=== PATIENT | female | born 1960 | race Caucasian/White ===

== ENCOUNTER 2017-01-27 15:20 | Inpatient (IN) ==
[2017-01-27] MEDS ORDERED: HYDROmorphone 2 MG/ML SYRINGE IV PRN (15:34)
[2017-01-27] MEDS ORDERED: ZOLPIDEM 5 MG TABLET PO PRN (15:34)
--- NOTE | 2017-01-27 16:25 | General Surg History&Physical ---
History of Present Illness Patient information: Note initiated : 01/27/17 at 3:54 pm Service Date, if different from initiated Date: [] Patient: Shanika Robles a 56 y/o F admitted on 01/27/17 for diverticulitis. Chief Complaint: [] HPI: Ms. Robles is a 56 year old F Medications and Allergies Home Medications Medication Instructions Recorded Confirmed Type ALPRAZolam [Xanax Xr] 1 mg PO PRN PRN 09/26/15 01/27/17 History Albuterol Sulfate [Ventolin] 1 puff INH Q4HP PRN 09/26/15 01/27/17 History Fenofibrate [Fenoglide] 120 mg PO DAILY 09/26/15 01/27/17 History Fexofenadine [Elham] 180 mg PO ONCE 09/26/15 01/27/17 History Furosemide [Lasix] 20 mg PO DAILY 09/26/15 01/27/17 History Levothyroxine [Synthroid] 25 mcg PO DAILY 09/26/15 01/27/17 History Lisinopril [Zestril] 20 mg PO DAILY 09/26/15 01/27/17 History Naproxen 500 mg PO DAILY 09/26/15 01/27/17 History Omeprazole [PriLOSEC] 40 mg PO ACB 09/26/15 01/27/17 History Sertraline [Zoloft] 100 mg PO DAILY 09/26/15 01/27/17 History traZODone HCL [Desyrel] 100 mg PO HS 09/26/15 01/27/17 History baclofen 10 mg tablet 10 mg PO BID PRN tab 12/29/16 01/27/17 History blood sugar diagnostic strips See Dose Instructions .ROUTE 12/29/16 01/27/17 History .MEDSUPPLY cholecalciferol (vitamin D3) 5,000 5,000 unit PO QDAY cap 12/29/16 01/27/17 History unit capsule epinephrine 0.3 mg/0.3 mL 0.3 mg IM ONCE PRN each 12/29/16 01/27/17 History injection, auto-injector freestyle lite lancet MISCELLANE QDAY 12/29/16 01/27/17 History latanoprost 0.005 % eye drops 1 drp OPHTHALMIC QHS ml 12/29/16 01/27/17 History lisinopril 10 0.5 tab PO QDAY tab 12/29/16 01/27/17 History mg-hydrochlorothiazide 12.5 mg tablet ondansetron 4 mg disintegrating 4 mg TRANSLINGU .Q4-6H PRN tab 12/29/16 History tablet potassium chloride ER 10 mEq 10 meq PO BID tab 12/29/16 01/27/17 History tablet,extended release tramadol 50 mg tablet See Label Instructions PO TID PRN 12/29/16 01/27/17 History tab amoxicillin 875 mg-potassium 1 tab PO BID #30 tab 01/18/17 01/27/17 Rx clavulanate 125 mg tablet clindamycin 300 mg capsule 300 mg PO QID #60 cap 01/18/17 01/27/17 Rx Allergies Allergy/AdvReac Type Severity Reaction Status Date / Time Buspirone [From BUSPAR] AdvReac Unknown Rash Verified 01/27/17 15:02
[2017-01-27 16:47] LABS: Mean Corpuscular HGB Conc 32.9 g/dL (31.0-36.0); Mean Corpuscular Hemoglobin 28.3 pg (26.0-34.0); Platelet Count 311 K/mcL (140-440); Red Cell Distribution Width 15.7 % (11.5-14.5)
[2017-01-27] MEDS: metroNIDAZOLE 500 MG/100 ML BAG IV SCH (16:50)
[2017-01-27 17:03] LABS: Eosinophils % (Manual) 3 % (0-7); Lymphocytes % 15 % (15-49); Monocytes % (Manual) 7 % (1-12); Platelet Estimate NORMAL (NORMAL); RBC Morphology NORMAL (NORMAL); Segmented Neutrophils % 75 % (38-78)
[2017-01-27 17:29] LABS: ALT/SGPT 15 U/l (0-40); Albumin/Globulin Ratio 0.9 (1.0-2.3); Alkaline Phosphatase 57 U/L (39-117); Bilirubin,Direct < 0.2 mg/dL (0.0-0.3); Blood Urea Nitrogen 7 mg/dl (6-20); Gamma Glutamyl Transpeptidase 34 U/L (5-36); Magnesium 1.8 mg/dL (1.6-2.5); Uric Acid 4.2 mg/dL (2.5-8.0)
[2017-01-27 17:35] LABS: Erythrocyte Sedimentation Rate 99 mm/hr (0-20)
[2017-01-27] MEDS ORDERED: PIPERACILLIN SODIUM/TAZOBACTAM 3.375 GM VIAL IV ONE (18:03)
[2017-01-27] MEDS: PIPERACILLIN SODIUM/TAZOBACTAM 3.375 GM in DEXTROSE 5% IN WATER 50 ML IV SCH (18:14)
[2017-01-27] MEDS ORDERED: ALBUTEROL SULFATE 1 PUFF INHALER INH PRN (18:26)
[2017-01-27] MEDS ORDERED: FEXOFENADINE 180 MG TABLET PO PRN (18:26)
[2017-01-27] MEDS ORDERED: SODIUM PHOSPHATE 45 MMOL/15 ML VIAL IV ONE (18:30)
[2017-01-27] MEDS: 0.9 % SODIUM CHLORIDE 1,000 ML IV SCH (19:19)
[2017-01-27] MEDS ORDERED: SODIUM PHOSPHATE 45 MMOL in DEXTROSE 5% IN WATER 500 ML IV ONE (21:00)
[2017-01-27 21:04] LABS: Appearance,Urine CLOUDY; Bacteria,Urine FEW /hpf (0); Bilirubin,Urine NEG (NEG); Calcium Oxalate Crystals,Urine MANY /hpf (0); Color,Urine AMBER; Glucose,Urine (UA) NEGATIVE (NEG); Leukocyte Esterase,Urine 75 /uL (NEG); Mucus,Urine MANY /hpf (0); Nitrate,Urine NEG (NEG); Protein,Urine 100 mg/dL (NEG); Specific Gravity,Urine 1.025 (1.000-1.035); Urine Blood NEG mg/dL (<0.03); Urine Budding Yeast FEW /hpf (0); Urine Hyaline Cast 30 /lpf (0-2); Urine RBC 23 /hpf (0-1); Urine Squamous Epithelial Cell 39 /hpf (0-4); Urine WBC 18 /hpf (0-4); Urobilinogen,Urine NEG (NEG)
[2017-01-27] MEDS: DOCUSATE SODIUM 100 MG CAPSULE PO SCH (21:41)
[2017-01-27] MEDS: LATANOPROST OPHTH DROPS 2.5ML BOTTLE OU SCH (21:42)
[2017-01-27] MEDS: traZODone HCL 150 MG TABLET PO SCH (21:42)
[2017-01-27] MEDS: 0.9 % SODIUM CHLORIDE 10 ML SYRINGE IV SCH (22:25)
[2017-01-28] MEDS: metroNIDAZOLE 500 MG/100 ML BAG IV SCH ×5 (01:46→23:00)
[2017-01-28] MEDS: HYDROmorphone 2 MG TABLET PO PRN ×4 (01:51→17:05)
[2017-01-28] MEDS: PIPERACILLIN SODIUM/TAZOBACTAM 3.375 GM in DEXTROSE 5% IN WATER 50 ML IV SCH ×4 (02:55→18:30)
[2017-01-28 05:31] LABS: Mean Cell Volume 86.3 fL (80.0-100.0); Mean Corpuscular HGB Conc 33.2 g/dL (31.0-36.0); Mean Corpuscular Hemoglobin 28.6 pg (26.0-34.0); Platelet Count 240 K/mcL (140-440); RBC 3.75 M/mcL (4.00-5.20); Red Cell Distribution Width 15.7 % (11.5-14.5)
[2017-01-28 05:58] LABS: ALT/SGPT 11 U/l (0-40); Albumin 3.5 gm/dL (3.2-5.2); Albumin/Globulin Ratio 0.9 (1.0-2.3); Alkaline Phosphatase 50 U/L (39-117); Bilirubin,Direct < 0.2 mg/dL (0.0-0.3); Blood Urea Nitrogen 5 mg/dl (6-20); Gamma Glutamyl Transpeptidase 30 U/L (5-36); Uric Acid 3.5 mg/dL (2.5-8.0)
[2017-01-28 06:34] LABS: Band Neutrophils % 1 % (0-10); Eosinophils % (Manual) 2 % (0-7); Lymphocytes % 27 % (15-49); Monocytes % (Manual) 6 % (1-12); Platelet Estimate NORMAL (NORMAL); RBC Morphology NORMAL (NORMAL); Segmented Neutrophils % 64 % (38-78)
[2017-01-28] MEDS: 0.9 % SODIUM CHLORIDE 10 ML SYRINGE IV SCH ×3 (07:04→23:58)
[2017-01-28] MEDS: PANTOPRAZOLE 40 MG TABLET PO SCH (07:16)
[2017-01-28] MEDS: LEVOTHYROXINE 25 MCG TABLET PO SCH (07:16)
[2017-01-28] MEDS ORDERED: LISINOPRIL/HCTZ 20/12.5MG TABLET PO SCH (09:00)
[2017-01-28] MEDS ORDERED: ALPRAZolam 0.5 MG TABLET PO PRN (10:38)
[2017-01-28] MEDS: HYDROCHLOROTHIAZIDE 25 MG TABLET PO SCH (10:48)
[2017-01-28] MEDS: SERTRALINE 50 MG TABLET PO SCH (10:49)
[2017-01-28] MEDS: ENOXAPARIN 40 MG/0.4 ML SYRINGE SQ SCH ×2 (10:50→10:55)
[2017-01-28] MEDS: LISINOPRIL 10 MG TABLET PO SCH (10:50)
[2017-01-28] MEDS: DOCUSATE SODIUM 100 MG CAPSULE PO SCH ×2 (10:50→20:46)
[2017-01-28] MEDS: FUROSEMIDE 20 MG TABLET PO SCH (10:50)
--- NOTE | 2017-01-28 11:51 | General Surgery Progress Note ---
Subjective Patient reports: feels better, still having pain, tolerating liquids well, flatus, nausea, afebrile Narrative: Note initiated : 01/28/17 at 11:49 am Service Date, if different from initiated Date: [] Patient: Shanika Rolbes 56 y/o F admitted on 01/27/17 for Diverticulitis. Chief Complaint: [Patient still has left lower quadrant pain. She has nausea but no vomiting. She has not had diarrhea since admission. She is afebrile. She has some mild postprandial discomfort.] Objective Temp Pulse Resp BP Pulse Ox 96.9 F L 53 L 20 126/71 94 01/28/17 08:00 01/28/17 04:00 01/28/17 08:00 01/28/17 08:00 01/28/17 08:00 - Additional Data Intake & Output - Last 24 hours: Intake & Output 01/26/17 01/27/17 01/28/17 01/29/17 05:59 05:59 05:59 05:59 Intake Total 1115 / 1115 100 / 100 Output Total 100 / 100 500 / 500 Balance 1015 / 1015 -400 / -400 Weight 230 lb - General physical appearance moderate distress, moderate pain - Eyes PERRL - ENT no congestion - Neck no masses - Respiratory clear to auscultation - Cardiovascular Cardiovascular exam: Present: normal rate and rhythm, RRR, +S1, +S2. Absent: JVD - Abdomen tender (Abdomen is mildly distended and obese she has tenderness in the left lower quadrant. There is no fullness or mass.) - Integumentary other (Extensive scarring of her extremities and abdominal wall is unchanged) - Neurologic normal coordination, normal sensation - Musculoskeletal normal gait, normal posture - Psychiatric oriented to time (Is), oriented to person, oriented to place, speech is normal, memory intact - Labs 01/28/17 04:30 01/28/17 04:30 Diabetes panel 01/27/17 01/28/17 Range/Units 16:24 04:30 Sodium 137 137 (133-145) mmol/L Potassium 3.4 3.0 L (3.3-5.1) mmol/L Chloride 96 98 (96-108) mmol/L Carbon Dioxide 22 25 (22-30) mmol/L BUN 7 5 L (6-20) mg/dl Creatinine 0.8 0.7 (0.6-1.1) mg/dl Glucose 95 103 (70-105) mg/dL Calcium 10.7 H 9.8 (8.6-10.4) mg/dl AST 18 16 (0-37) U/l ALT 15 11 (0-40) U/l Alkaline Phosphatase 57 50 (39-117) U/L Total Protein 8.6 H 7.3 (5.9-8.4) gm/dL Albumin 4.0 3.5 (3.2-5.2) gm/dL Triglycerides 182 H 142 (<150) mg/dl Calcium panel 01/27/17 01/28/17 Range/Units 16:24 04:30 Calcium 10.7 H 9.8 (8.6-10.4) mg/dl Phosphorus 2.0 L 4.6 H (2.7-4.5) mg/dL Albumin 4.0 3.5 (3.2-5.2) gm/dL Pituitary panel 01/27/17 01/28/17 Range/Units 16:24 04:30 Sodium 137 137 (133-145) mmol/L Potassium 3.4 3.0 L (3.3-5.1) mmol/L Chloride 96 98 (96-108) mmol/L Carbon Dioxide 22 25 (22-30) mmol/L BUN 7 5 L (6-20) mg/dl Creatinine 0.8 0.7 (0.6-1.1) mg/dl Glucose 95 103 (70-105) mg/dL Calcium 10.7 H 9.8 (8.6-10.4) mg/dl Adrenal panel 01/27/17 01/28/17 Range/Units 16:24 04:30 Sodium 137 137 (133-145) mmol/L Potassium 3.4 3.0 L (3.3-5.1) mmol/L Chloride 96 98 (96-108) mmol/L Carbon Dioxide 22 25 (22-30) mmol/L BUN 7 5 L (6-20) mg/dl Creatinine 0.8 0.7 (0.6-1.1) mg/dl Glucose 95 103 (70-105) mg/dL Calcium 10.7 H 9.8 (8.6-10.4) mg/dl Total Bilirubin 0.6 0.5 (0.0-1.0) mg/dL AST 18 16 (0-37) U/l ALT 15 11 (0-40) U/l Alkaline Phosphatase 57 50 (39-117) U/L Total Protein 8.6 H 7.3 (5.9-8.4) gm/dL Albumin 4.0 3.5 (3.2-5.2) gm/dL Assessment and Plan (1) Diverticulitis of intestine with abscess without bleeding Status: Acute Assessment and plan: Continue present therapy with plans for CT of abdomen and pelvis on Tuesday to determine the degree of improvement and to formulate a plan for continued treatment. Current Visit: Yes (2) Anxiety associated with depression Status: Acute Current Visit: Yes (3) Hypertension, essential Status: Chronic Current Visit: No - Time Spent With Patient Total time spent is greater than 50% in coordination of care (as documented) at patient's floor/unit and/or counseling patient:
[2017-01-28] MEDS: BACLOFEN 10 MG TABLET PO PRN (20:43)
[2017-01-28] MEDS: POTASSIUM CHLORIDE 20 MEQ TABLET PO SCH (20:43)
[2017-01-28] MEDS: traZODone HCL 150 MG TABLET PO SCH (20:44)
[2017-01-28] MEDS: LATANOPROST OPHTH DROPS 2.5ML BOTTLE OU SCH (23:57)
[2017-01-29] MEDS: PIPERACILLIN SODIUM/TAZOBACTAM 3.375 GM in DEXTROSE 5% IN WATER 50 ML IV SCH ×4 (00:50→18:06)
[2017-01-29] MEDS: 0.9 % SODIUM CHLORIDE 10 ML SYRINGE IV SCH ×3 (05:18→21:02)
[2017-01-29] MEDS: metroNIDAZOLE 500 MG/100 ML BAG IV SCH ×4 (05:18→22:44)
[2017-01-29 06:21] LABS: Mean Cell Volume 86.5 fL (80.0-100.0); Mean Corpuscular HGB Conc 33.2 g/dL (31.0-36.0); Mean Corpuscular Hemoglobin 28.7 pg (26.0-34.0); Platelet Count 233 K/mcL (140-440); Red Cell Distribution Width 15.2 % (11.5-14.5)
[2017-01-29 06:55] LABS: ALT/SGPT 10 U/l (0-40); Albumin 3.5 gm/dL (3.2-5.2); Albumin/Globulin Ratio 0.9 (1.0-2.3); Alkaline Phosphatase 47 U/L (39-117); Bilirubin,Direct < 0.2 mg/dL (0.0-0.3); Blood Urea Nitrogen 3 mg/dl (6-20); Gamma Glutamyl Transpeptidase 28 U/L (5-36); Magnesium 1.9 mg/dL (1.6-2.5); Uric Acid 3.3 mg/dL (2.5-8.0)
[2017-01-29] MEDS: PANTOPRAZOLE 40 MG TABLET PO SCH (07:09)
[2017-01-29] MEDS: LEVOTHYROXINE 25 MCG TABLET PO SCH (07:09)
[2017-01-29 08:18] LABS: Anisocytosis 1+ (NONE SEEN); Eosinophils % (Manual) 2 % (0-7); Lymphocytes % 19 % (15-49); Monocytes % (Manual) 4 % (1-12); Platelet Estimate NORMAL (NORMAL); RBC Morphology ABNORM (NORMAL); Segmented Neutrophils % 75 % (38-78)
[2017-01-29] MEDS: ACETAMINOPHEN 325 MG TABLET PO PRN (09:11)
[2017-01-29] MEDS: POTASSIUM CHLORIDE 20 MEQ TABLET PO SCH ×2 (09:11→17:18)
[2017-01-29] MEDS: LISINOPRIL 10 MG TABLET PO SCH (10:00)
[2017-01-29] MEDS: FUROSEMIDE 20 MG TABLET PO SCH (10:00)
[2017-01-29] MEDS: SERTRALINE 50 MG TABLET PO SCH (10:01)
[2017-01-29] MEDS: HYDROCHLOROTHIAZIDE 25 MG TABLET PO SCH (10:01)
[2017-01-29] MEDS: ENOXAPARIN 40 MG/0.4 ML SYRINGE SQ SCH (10:02)
[2017-01-29] MEDS: DOCUSATE SODIUM 100 MG CAPSULE PO SCH ×2 (10:03→21:17)
[2017-01-29] MEDS: ONDANSETRON 4 MG/2 ML VIAL IV PRN (10:11)
[2017-01-29] MEDS: BACLOFEN 10 MG TABLET PO PRN (10:12)
[2017-01-29] MEDS: HYDROmorphone 2 MG TABLET PO PRN (13:37)
--- NOTE | 2017-01-29 15:43 | General Surgery Progress Note ---
Subjective Patient reports: feels better, pain is less, tolerating liquids well, flatus, bowel movement, diarrhea, nausea, afebrile Narrative: Note initiated : 01/29/17 at 3:41 pm Service Date, if different from initiated Date: [] Patient: Shanika Robles 56 y/o F admitted on 01/27/17 for Diverticulitis. Chief Complaint: [Patient feels much better and she is having less pain. She had 3 watery bowel movements and had some nausea with mild dry heaves. She has mild lower back pain which is chronic. She has been afebrile.] Objective Temp Pulse Resp BP Pulse Ox 97.0 F 66 16 122/75 95 01/29/17 11:40 01/29/17 07:10 01/29/17 11:40 01/29/17 11:40 01/29/17 11:40 - Additional Data Intake & Output - Last 24 hours: Intake & Output 01/27/17 01/28/17 01/29/17 01/30/17 05:59 05:59 05:59 05:59 Intake Total 1115 / 1115 2770 / 2770 510 / 510 Output Total 100 / 100 1800 / 1800 750 / 750 Balance 1015 / 1015 970 / 970 -240 / -240 Weight 230 lb 229 lb - General physical appearance well developed, well nourished, no distress - Eyes PERRL - ENT no congestion - Neck no masses - Respiratory normal expansion, normal respiratory effort, clear to auscultation - Cardiovascular Cardiovascular exam: Present: normal rate and rhythm, RRR, +S1, +S2. Absent: gallop, JVD, systolic murmur - Abdomen tender, bowel sounds, distended (Mild tenderness in left lower quadrant with mild distention but good active bowel sounds) - Integumentary no growths, no abnormal pigmentation, other (Chronic excoriations on the extremities and abdomen unchanged) - Neurologic normal coordination, normal sensation - Musculoskeletal normal gait, normal posture - Psychiatric oriented to time, oriented to person, oriented to place, speech is normal, memory intact - Labs 01/29/17 04:59 01/29/17 04:59 Diabetes panel 01/29/17 Range/Units 04:59 Sodium 139 (133-145) mmol/L Potassium 3.2 L (3.3-5.1) mmol/L Chloride 102 (96-108) mmol/L Carbon Dioxide 25 (22-30) mmol/L BUN 3 L (6-20) mg/dl Creatinine 0.6 (0.6-1.1) mg/dl Glucose 111 H (70-105) mg/dL Calcium 10.2 (8.6-10.4) mg/dl AST 14 (0-37) U/l ALT 10 (0-40) U/l Alkaline Phosphatase 47 (39-117) U/L Total Protein 7.4 (5.9-8.4) gm/dL Albumin 3.5 (3.2-5.2) gm/dL Triglycerides 81 (<150) mg/dl Calcium panel 01/29/17 Range/Units 04:59 Calcium 10.2 (8.6-10.4) mg/dl Phosphorus 2.4 L (2.7-4.5) mg/dL Albumin 3.5 (3.2-5.2) gm/dL Pituitary panel 01/29/17 Range/Units 04:59 Sodium 139 (133-145) mmol/L Potassium 3.2 L (3.3-5.1) mmol/L Chloride 102 (96-108) mmol/L Carbon Dioxide 25 (22-30) mmol/L BUN 3 L (6-20) mg/dl Creatinine 0.6 (0.6-1.1) mg/dl Glucose 111 H (70-105) mg/dL Calcium 10.2 (8.6-10.4) mg/dl Adrenal panel 01/29/17 Range/Units 04:59 Sodium 139 (133-145) mmol/L Potassium 3.2 L (3.3-5.1) mmol/L Chloride 102 (96-108) mmol/L Carbon Dioxide 25 (22-30) mmol/L BUN 3 L (6-20) mg/dl Creatinine 0.6 (0.6-1.1) mg/dl Glucose 111 H (70-105) mg/dL Calcium 10.2 (8.6-10.4) mg/dl Total Bilirubin 0.5 (0.0-1.0) mg/dL AST 14 (0-37) U/l ALT 10 (0-40) U/l Alkaline Phosphatase 47 (39-117) U/L Total Protein 7.4 (5.9-8.4) gm/dL Albumin 3.5 (3.2-5.2) gm/dL Assessment and Plan (1) Diverticulitis of intestine with abscess without bleeding Status: Acute Assessment and plan: Continue present therapy with plans for CT of abdomen and pelvis on Tuesday to determine the degree of improvement and to formulate a plan for continued treatment. Current Visit: Yes (2) Anxiety associated with depression Status: Acute Current Visit: Yes (3) Hypertension, essential Status: Chronic Current Visit: No - Time Spent With Patient Total time spent is greater than 50% in coordination of care (as documented) at patient's floor/unit and/or counseling patient:
[2017-01-29] MEDS: 0.9 % SODIUM CHLORIDE 1,000 ML IV SCH (16:15)
[2017-01-29] MEDS: PROMETHAZINE 25 MG TABLET PO PRN (21:01)
[2017-01-29] MEDS: traZODone HCL 150 MG TABLET PO SCH (21:01)
[2017-01-29] MEDS: LATANOPROST OPHTH DROPS 2.5ML BOTTLE OU SCH (21:05)
[2017-01-30] MEDS: PIPERACILLIN SODIUM/TAZOBACTAM 3.375 GM in DEXTROSE 5% IN WATER 50 ML IV SCH ×5 (00:10→23:52)
[2017-01-30] MEDS: metroNIDAZOLE 500 MG/100 ML BAG IV SCH ×4 (04:35→22:38)
[2017-01-30 05:45] LABS: Mean Cell Volume 86.4 fL (80.0-100.0); Mean Corpuscular HGB Conc 33.5 g/dL (31.0-36.0); Mean Corpuscular Hemoglobin 28.9 pg (26.0-34.0); Platelet Count 221 K/mcL (140-440); RBC 3.66 M/mcL (4.00-5.20); Red Cell Distribution Width 15.3 % (11.5-14.5)
[2017-01-30] MEDS: 0.9 % SODIUM CHLORIDE 10 ML SYRINGE IV SCH ×4 (05:51→20:31)
[2017-01-30 06:12] LABS: ALT/SGPT 8 U/l (0-40); Albumin 3.3 gm/dL (3.2-5.2); Albumin/Globulin Ratio 0.9 (1.0-2.3); Alkaline Phosphatase 42 U/L (39-117); Bilirubin,Direct < 0.2 mg/dL (0.0-0.3); Blood Urea Nitrogen 3 mg/dl (6-20); Gamma Glutamyl Transpeptidase 26 U/L (5-36); Uric Acid 3.1 mg/dL (2.5-8.0)
[2017-01-30 06:37] LABS: Anisocytosis 1+ (NONE SEEN); Band Neutrophils % 3 % (0-10); Eosinophils % (Manual) 3 % (0-7); Lymphocytes % 33 % (15-49); Monocytes % (Manual) 9 % (1-12); Platelet Estimate NORMAL (NORMAL); RBC Morphology ABNORM (NORMAL); Segmented Neutrophils % 52 % (38-78)
[2017-01-30] MEDS: PANTOPRAZOLE 40 MG TABLET PO SCH (07:37)
[2017-01-30] MEDS: POTASSIUM CHLORIDE 20 MEQ TABLET PO SCH ×2 (07:38→17:18)
[2017-01-30] MEDS: LEVOTHYROXINE 25 MCG TABLET PO SCH (07:38)
[2017-01-30] MEDS: PROMETHAZINE 25 MG TABLET PO PRN (08:52)
[2017-01-30] MEDS: HYDROCHLOROTHIAZIDE 25 MG TABLET PO SCH (10:58)
[2017-01-30] MEDS: DOCUSATE SODIUM 100 MG CAPSULE PO SCH ×2 (10:58→20:30)
[2017-01-30] MEDS: FUROSEMIDE 20 MG TABLET PO SCH (10:58)
[2017-01-30] MEDS: LISINOPRIL 10 MG TABLET PO SCH (10:58)
[2017-01-30] MEDS: BACLOFEN 10 MG TABLET PO PRN ×2 (10:59→19:26)
[2017-01-30] MEDS: SERTRALINE 50 MG TABLET PO SCH (10:59)
[2017-01-30] MEDS: ENOXAPARIN 40 MG/0.4 ML SYRINGE SQ SCH (11:02)
[2017-01-30] MEDS: ONDANSETRON 4 MG/2 ML VIAL IV PRN (11:07)
--- NOTE | 2017-01-30 15:27 | General Surgery Progress Note ---
Subjective Patient reports: feels better, pain is less, tolerating liquids well, flatus (Is ), bowel movement, nausea, afebrile Narrative: Note initiated : 01/30/17 at 3:24 pm Service Date, if different from initiated Date: [] Patient: Shanika Robles 56 y/o F admitted on 01/27/17 for Diverticulitis. Chief Complaint: [Patient feels better. She has some nausea and has had some diarrheal stools. She has not had bleeding per rectum. Her left lower quadrant pain is improved.] Objective Temp Pulse Resp BP Pulse Ox 97 F 62 20 148/86 95 01/30/17 11:56 01/30/17 04:00 01/30/17 11:56 01/30/17 11:56 01/30/17 11:56 - Additional Data Intake & Output - Last 24 hours: Intake & Output 01/28/17 01/29/17 01/30/17 01/31/17 05:59 05:59 05:59 05:59 Intake Total 1115 / 1115 2770 / 2770 3059 / 3059 440 / 440 Output Total 100 / 100 1800 / 1800 1850 / 1850 375 / 375 Balance 1015 / 1015 970 / 970 1209 / 1209 65 / 65 Weight 230 lb 229 lb 229 lb - General physical appearance well developed, no distress - Eyes PERRL - ENT no congestion - Neck no venous distension - Respiratory normal expansion (Summary is on the chart), normal respiratory effort, clear to auscultation - Cardiovascular Cardiovascular exam: Present: normal rate and rhythm, RRR, +S1, +S2. Absent: JVD - Abdomen soft, tender (Mild tenderness in left lower quadrant but no guarding or rebound ; good active bowel sounds) - Rectum normal sphincter tone, no hemorrhoids, no tenderness, no masses, no bleeding - Integumentary no rash, no growths, no abnormal pigmentation - Neurologic normal coordination, normal sensation - Musculoskeletal normal gait, normal posture - Psychiatric oriented to time, oriented to person, oriented to place, speech is normal, memory intact - Labs 01/30/17 04:20 01/30/17 04:20 Diabetes panel 01/30/17 Range/Units 04:20 Sodium 141 (133-145) mmol/L Potassium 3.5 (3.3-5.1) mmol/L Chloride 105 (96-108) mmol/L Carbon Dioxide 25 (22-30) mmol/L BUN 3 L (6-20) mg/dl Creatinine 0.7 (0.6-1.1) mg/dl Glucose 93 (70-105) mg/dL Calcium 10.1 (8.6-10.4) mg/dl AST 10 (0-37) U/l ALT 8 (0-40) U/l Alkaline Phosphatase 42 (39-117) U/L Total Protein 7.1 (5.9-8.4) gm/dL Albumin 3.3 (3.2-5.2) gm/dL Triglycerides 99 (<150) mg/dl Calcium panel 01/30/17 Range/Units 04:20 Calcium 10.1 (8.6-10.4) mg/dl Phosphorus 3.0 (2.7-4.5) mg/dL Albumin 3.3 (3.2-5.2) gm/dL Pituitary panel 01/30/17 Range/Units 04:20 Sodium 141 (133-145) mmol/L Potassium 3.5 (3.3-5.1) mmol/L Chloride 105 (96-108) mmol/L Carbon Dioxide 25 (22-30) mmol/L BUN 3 L (6-20) mg/dl Creatinine 0.7 (0.6-1.1) mg/dl Glucose 93 (70-105) mg/dL Calcium 10.1 (8.6-10.4) mg/dl Adrenal panel 01/30/17 Range/Units 04:20 Sodium 141 (133-145) mmol/L Potassium 3.5 (3.3-5.1) mmol/L Chloride 105 (96-108) mmol/L Carbon Dioxide 25 (22-30) mmol/L BUN 3 L (6-20) mg/dl Creatinine 0.7 (0.6-1.1) mg/dl Glucose 93 (70-105) mg/dL Calcium 10.1 (8.6-10.4) mg/dl Total Bilirubin 0.3 (0.0-1.0) mg/dL AST 10 (0-37) U/l ALT 8 (0-40) U/l Alkaline Phosphatase 42 (39-117) U/L Total Protein 7.1 (5.9-8.4) gm/dL Albumin 3.3 (3.2-5.2) gm/dL Assessment and Plan (1) Diverticulitis of intestine with abscess without bleeding Status: Acute Assessment and plan: Continue present therapy with plans for CT of abdomen and pelvis on Tuesday to determine the degree of improvement and to formulate a plan for continued treatment. Current Visit: Yes (2) Anxiety associated with depression Status: Acute Current Visit: Yes (3) Hypertension, essential Status: Chronic Current Visit: No - Time Spent With Patient Total time spent is greater than 50% in coordination of care (as documented) at patient's floor/unit and/or counseling patient:
[2017-01-30] MEDS: ACETAMINOPHEN 325 MG TABLET PO PRN (19:26)
[2017-01-30] MEDS: traZODone HCL 150 MG TABLET PO SCH (20:30)
[2017-01-30] MEDS: LATANOPROST OPHTH DROPS 2.5ML BOTTLE OU SCH (20:30)
[2017-01-30] MEDS: HYDROmorphone 2 MG TABLET PO PRN (20:33)
[2017-01-31] MEDS: metroNIDAZOLE 500 MG/100 ML BAG IV SCH ×3 (04:44→18:35)
[2017-01-31] MEDS: 0.9 % SODIUM CHLORIDE 10 ML SYRINGE IV SCH ×3 (04:45→21:24)
[2017-01-31] MEDS: LEVOTHYROXINE 25 MCG TABLET PO SCH (06:59)
[2017-01-31] MEDS: PANTOPRAZOLE 40 MG TABLET PO SCH (06:59)
[2017-01-31] MEDS: PROMETHAZINE 25 MG TABLET PO PRN ×2 (07:10→22:56)
[2017-01-31] MEDS ORDERED: IOPAMIDOL 100 ML BOTTLE IV ONE (08:30)
[2017-01-31] MEDS: PIPERACILLIN SODIUM/TAZOBACTAM 3.375 GM in DEXTROSE 5% IN WATER 50 ML IV SCH ×3 (08:36→19:42)
[2017-01-31] MEDS: FUROSEMIDE 20 MG TABLET PO SCH (10:37)
[2017-01-31] MEDS: LISINOPRIL 10 MG TABLET PO SCH (10:37)
[2017-01-31] MEDS: HYDROCHLOROTHIAZIDE 25 MG TABLET PO SCH (10:38)
[2017-01-31] MEDS: POTASSIUM CHLORIDE 20 MEQ TABLET PO SCH (10:38)
[2017-01-31] MEDS: ENOXAPARIN 40 MG/0.4 ML SYRINGE SQ SCH (10:39)
[2017-01-31] MEDS: SERTRALINE 50 MG TABLET PO SCH (10:39)
[2017-01-31] MEDS: DOCUSATE SODIUM 100 MG CAPSULE PO SCH (10:40)
--- NOTE | 2017-01-31 11:04 | Cat Scan Report ---
CLINICAL INFORMATION: Follow up diverticulitis and peridiverticular abscess COMPARISON: Abdomen and pelvic CT less than one month prior-01/06/2017 TECHNIQUE: Following enteric contrast, 80 cc of Isovue-300 were injected intravenously, and 60 seconds later, 2.5 mm helical slices were obtained from the mid heart through the subtrochanteric regions. Following reconstruction, 2.5 mm sagittal, coronal and axial reformatted images were processed and reviewed at bone, lung and soft tissue windows. Five minutes later, 5 mm helical slices were obtained from the mid heart through the kidneys and viewed at soft tissue windows. The patient returned for supplemental 2.5 mm slices through the pelvis (iliac crests through the subtrochanteric region) is with the use of rectal contrast to opacify the distal colon FINDINGS: Lung bases show a benign 6 mm well-circumscribed fat-containing hamartoma in the superior segment of the left lower lobe (image four). There is minimal scarring or atelectasis in the remaining lung bases. No effusions. The visualized heart is normal. Images should the abdomen show the gallbladder is surgically absent. Intrahepatic and common bile ducts are normal caliber: CBD is 6 mm. The liver, both kidneys, adrenal glands, spleen, pancreas and aorta, including aortic branches, are normal in size, configuration and attenuation without focal lesion. Images through the pelvis show hysterectomy changes. Urinary bladder is collapsed, but shows no gross abnormality. Moderate diverticulitis involving the mid sigmoid colon is again seen. There is moderate concentric wall thickening and inflammation in the perisigmoid fat. The 4.4 cm abscess in the posterior peridiverticular fat is unchanged in size. There are two sinus tracts extending from the mid sigmoid colon in the posterior abscess. Both sinus tracts are opacified with the rectal contrast and fill the abscess cavity IMPRESSION: Moderate persistent diverticulitis of mid sigmoid colon. 4.4 cm abscess in the posterior peridiverticular fat is unchanged in size from the comparison CT nearly one month prior. 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 Suspect this may require surgical resection for definitive treatment. 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 Interpreted and Authenticated by: Coy Lyons 01/31/17
[2017-01-31] MEDS ORDERED: PEG 3350/NA SULF,BICARB,CL/KCL 4,000 ML ORAL.SOL PO ONE (12:58)
[2017-01-31] MEDS ORDERED: 0.9 % SODIUM CHLORIDE 250 ML IV SCH ×2 (13:00→20:45)
--- NOTE | 2017-01-31 13:05 | General Surgery Progress Note ---
Subjective Patient reports: feels better, pain is less, tolerating liquids well, flatus, bowel movement, afebrile Narrative: Note initiated : 01/31/17 at 1:03 pm Service Date, if different from initiated Date: [] Patient: Shanika Robles 56 y/o F admitted on 01/27/17 for Diverticulitis. Chief Complaint: [Patient is stable and states that she has less pain. 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 It is unlikely that this was going to heal so the patient is counseled for segmental colectomy. The bowel prep will be started today and she is scheduled for surgery on Tuesday. This is discussed with her in detail. She is informed that if the abscess cannot be removed and a contained the manner that she will need to have a colostomy with colostomy closure at a later date because of the potential for anastomotic leak if an anastomosis was placed in the presence of infection. She seems to understand this. She has some financial problems and I will ask the behavioral health case manager to discuss this with her.] Objective Temp Pulse Resp BP Pulse Ox 98.5 F 53 L 20 114/61 94 01/31/17 11:37 01/31/17 04:00 01/31/17 11:37 01/31/17 11:37 01/31/17 11:37 - Additional Data Intake & Output - Last 24 hours: Intake & Output 01/29/17 01/30/17 01/31/17 02/01/17 05:59 05:59 05:59 05:59 Intake Total 2770 / 2770 3059 / 3059 3232 / 3232 900 / 900 Output Total 1800 / 1800 1850 / 1850 1175 / 1175 280 / 280 Balance 970 / 970 1209 / 1209 2057 / 2057 620 / 620 Weight 229 lb 229 lb 217 lb - General physical appearance no distress, no pain - Eyes PERRL - ENT no congestion - Neck no venous distension - Respiratory normal respiratory effort, clear to auscultation - Cardiovascular Cardiovascular exam: Present: normal rate and rhythm, RRR, +S1, +S2. Absent: JVD - Abdomen soft, tender (Tenderness in left lower quadrant persists. She has active bowel sounds.) - Integumentary no rash, no growths, no abnormal pigmentation - Neurologic normal coordination, normal sensation - Musculoskeletal normal gait, normal posture - Psychiatric other (Mild situational depression) - Labs 01/30/17 04:20 01/30/17 04:20 - Imaging CT scan - abdomen: report reviewed, image reviewed Assessment and Plan (1) Diverticulitis of intestine with abscess without bleeding Status: Acute Assessment and plan: Patient is counseled for segmental left colectomy. This is scheduled for Tuesday. Bowel prep will start today and patient will be switched to clear liquid diet. Current Visit: Yes (2) Anxiety associated with depression Status: Acute Current Visit: Yes (3) Hypertension, essential Status: Chronic Current Visit: No - Time Spent With Patient Total time spent is greater than 50% in coordination of care (as documented) at patient's floor/unit and/or counseling patient:
[2017-01-31] MEDS: HYDROmorphone 2 MG TABLET PO PRN ×2 (13:38→18:47)
[2017-01-31] MEDS: ONDANSETRON 4 MG/2 ML VIAL IV PRN (18:34)
[2017-01-31] MEDS: ACETAMINOPHEN 325 MG TABLET PO PRN (18:46)
[2017-01-31] MEDS: 0.9 % SODIUM CHLORIDE 1,000 ML IV SCH (20:45)
[2017-01-31] MEDS: LATANOPROST OPHTH DROPS 2.5ML BOTTLE OU SCH (21:23)
[2017-01-31] MEDS: traZODone HCL 150 MG TABLET PO SCH (21:23)
[2017-02-01] MEDS: metroNIDAZOLE 500 MG/100 ML BAG IV SCH ×5 (00:08→23:55)
[2017-02-01] MEDS: PIPERACILLIN SODIUM/TAZOBACTAM 3.375 GM in DEXTROSE 5% IN WATER 50 ML IV SCH ×4 (01:42→19:20)
[2017-02-01] MEDS: 0.9 % SODIUM CHLORIDE 10 ML SYRINGE IV SCH ×3 (05:29→21:02)
[2017-02-01 05:56] LABS: Basophils # (Auto) 0 K/mcL (0.0-0.3); Basophils % (Auto) 0.6 % (0.0-2.0); Eosinophils # (Auto) 0.3 K/mcL (0.0-0.7); Granulocytes % (Auto) 57.2 % (38.0-78.0); Lymphocytes # (Auto) 1.5 K/mcL (1.5-4.8); Lymphocytes % (Auto) 29.9 % (15.5-49.0); Mean Cell Volume 86.2 fL (80.0-100.0); Mean Corpuscular HGB Conc 33.2 g/dL (31.0-36.0); Mean Corpuscular Hemoglobin 28.6 pg (26.0-34.0); Monocytes # (Auto) 0.4 K/mcL (0.1-0.9); Monocytes % (Auto) 7.3 % (1.0-12.0); Platelet Count 240 K/mcL (140-440); RBC 4.21 M/mcL (4.00-5.20); Red Cell Distribution Width 15.3 % (11.5-14.5)
[2017-02-01] MEDS: LEVOTHYROXINE 25 MCG TABLET PO SCH (06:54)
[2017-02-01] MEDS: PANTOPRAZOLE 40 MG TABLET PO SCH (06:54)
[2017-02-01 07:01] LABS: ALT/SGPT 9 U/l (0-40); Albumin 3.4 gm/dL (3.2-5.2); Albumin/Globulin Ratio 0.9 (1.0-2.3); Alkaline Phosphatase 38 U/L (39-117); Bilirubin,Direct < 0.2 mg/dL (0.0-0.3); Blood Urea Nitrogen 3 mg/dl (6-20); Gamma Glutamyl Transpeptidase 25 U/L (5-36); Magnesium 1.8 mg/dL (1.6-2.5); Uric Acid 3.1 mg/dL (2.5-8.0)
--- NOTE | 2017-02-01 07:56 | XRay Report ---
CLINICAL INFORMATION: Preop COMPARISON: None. FINDINGS:The heart size, mediastinum and pulmonary vessels are unremarkable. The lungs are clear. There are no effusions. The bones and soft tissues are within normal limits. IMPRESSION: Normal chest. Interpreted and Authenticated by: Coy Lyons 02/01/17
[2017-02-01] MEDS: FUROSEMIDE 20 MG TABLET PO SCH (09:08)
[2017-02-01] MEDS: HYDROCHLOROTHIAZIDE 25 MG TABLET PO SCH (09:09)
[2017-02-01] MEDS: LISINOPRIL 10 MG TABLET PO SCH (09:13)
[2017-02-01] MEDS: SERTRALINE 50 MG TABLET PO SCH (09:13)
[2017-02-01] MEDS: ENOXAPARIN 40 MG/0.4 ML SYRINGE SQ SCH (09:15)
[2017-02-01] MEDS: ONDANSETRON 4 MG/2 ML VIAL IV PRN ×3 (09:52→21:11)
--- NOTE | 2017-02-01 16:28 | General Surgery Progress Note ---
Subjective Patient reports: feels better, pain is less, tolerating liquids well, diarrhea, afebrile Narrative: Note initiated : 02/01/17 at 4:26 pm Service Date, if different from initiated Date: [] Patient: Shanika Robles 56 y/o F admitted on 01/27/17 for Diverticulitis. Chief Complaint: [Patient states that she feels better. She still has some left lower quadrant pain. She has been afebrile. Her lab evaluation is unremarkable. She was thoroughly counseled for partial colectomy in the morning. She is informed that if she has major infection which cannot be removed without contamination of the peritoneal cavity that she will need to have colostomy.] Objective Temp Pulse Resp BP Pulse Ox 97.9 F 62 16 118/72 96 02/01/17 15:22 02/01/17 15:22 02/01/17 15:24 02/01/17 15:22 02/01/17 15:22 - Additional Data Intake & Output - Last 24 hours: Intake & Output 01/30/17 01/31/17 02/01/17 02/02/17 05:59 05:59 05:59 05:59 Intake Total 3059 / 3059 3232 / 3232 4014 / 4014 300 / 300 Output Total 1850 / 1850 1175 / 1175 2205 / 2205 400 / 400 Balance 1209 / 1209 2057 / 205 1809 / 1809 -100 / -100 Weight 229 lb 217 lb 214 lb 8 oz - General physical appearance no distress - Eyes PERRL - ENT no congestion - Neck no venous distension - Respiratory normal respiratory effort, clear to auscultation, other - Cardiovascular Cardiovascular exam: Present: normal rate and rhythm, RRR, +S1, +S2. Absent: JVD - Abdomen tender (Left lower quadrant tenderness but with no distention; good active bowel sounds) - Integumentary no rash, no growths, no abnormal pigmentation - Neurologic normal coordination, normal sensation - Musculoskeletal normal gait, normal posture - Psychiatric oriented to time, oriented to person, oriented to place, speech is normal, memory intact - Labs 02/01/17 04:24 02/01/17 04:24 Diabetes panel 02/01/17 Range/Units 04:24 Sodium 140 (133-145) mmol/L Potassium 3.4 (3.3-5.1) mmol/L Chloride 103 (96-108) mmol/L Carbon Dioxide 24 (22-30) mmol/L BUN 3 L (6-20) mg/dl Creatinine 0.6 (0.6-1.1) mg/dl Glucose 86 (70-105) mg/dL Calcium 9.8 (8.6-10.4) mg/dl AST 15 (0-37) U/l ALT 9 (0-40) U/l Alkaline Phosphatase 38 L (39-117) U/L Total Protein 7.2 (5.9-8.4) gm/dL Albumin 3.4 (3.2-5.2) gm/dL Triglycerides 139 (<150) mg/dl Calcium panel 02/01/17 Range/Units 04:24 Calcium 9.8 (8.6-10.4) mg/dl Phosphorus 3.1 (2.7-4.5) mg/dL Albumin 3.4 (3.2-5.2) gm/dL Pituitary panel 02/01/17 Range/Units 04:24 Sodium 140 (133-145) mmol/L Potassium 3.4 (3.3-5.1) mmol/L Chloride 103 (96-108) mmol/L Carbon Dioxide 24 (22-30) mmol/L BUN 3 L (6-20) mg/dl Creatinine 0.6 (0.6-1.1) mg/dl Glucose 86 (70-105) mg/dL Calcium 9.8 (8.6-10.4) mg/dl Adrenal panel 02/01/17 Range/Units 04:24 Sodium 140 (133-145) mmol/L Potassium 3.4 (3.3-5.1) mmol/L Chloride 103 (96-108) mmol/L Carbon Dioxide 24 (22-30) mmol/L BUN 3 L (6-20) mg/dl Creatinine 0.6 (0.6-1.1) mg/dl Glucose 86 (70-105) mg/dL Calcium 9.8 (8.6-10.4) mg/dl Total Bilirubin 0.3 (0.0-1.0) mg/dL AST 15 (0-37) U/l ALT 9 (0-40) U/l Alkaline Phosphatase 38 L (39-117) U/L Total Protein 7.2 (5.9-8.4) gm/dL Albumin 3.4 (3.2-5.2) gm/dL Assessment and Plan (1) Diverticulitis of intestine with abscess without bleeding Status: Acute Assessment and plan: Patient is counseled for segmental left colectomy. This is scheduled for Tuesday. Current Visit: Yes (2) Anxiety associated with depression Status: Acute Current Visit: Yes (3) Hypertension, essential Status: Chronic Current Visit: No - Time Spent With Patient Total time spent is greater than 50% in coordination of care (as documented) at patient's floor/unit and/or counseling patient:
[2017-02-01] MEDS: ACETAMINOPHEN 325 MG TABLET PO PRN (19:36)
[2017-02-01] MEDS: PROMETHAZINE 25 MG TABLET PO PRN (19:37)
[2017-02-01] MEDS: traZODone HCL 150 MG TABLET PO SCH (21:11)
[2017-02-01] MEDS: LATANOPROST OPHTH DROPS 2.5ML BOTTLE OU SCH (21:13)
[2017-02-01] MEDS ORDERED: MAGNESIUM CITRATE 300 ML ORAL.SOL ONE (21:13)
[2017-02-01] MEDS: MAGNESIUM CITRATE 300 ML ORAL.SOL PO SCH ×2 (23:49→23:50)
[2017-02-02] MEDS: PIPERACILLIN SODIUM/TAZOBACTAM 3.375 GM in DEXTROSE 5% IN WATER 50 ML IV SCH ×4 (00:55→18:27)
[2017-02-02 05:59] LABS: Basophils # (Auto) 0 K/mcL (0.0-0.3); Basophils % (Auto) 0.5 % (0.0-2.0); Eosinophils # (Auto) 0.2 K/mcL (0.0-0.7); Eosinophils % (Auto) 3.1 % (0.0-7.0); Granulocytes % (Auto) 63.9 % (38.0-78.0); Lymphocytes # (Auto) 1.3 K/mcL (1.5-4.8); Lymphocytes % (Auto) 24.7 % (15.5-49.0); Mean Cell Volume 86.4 fL (80.0-100.0); Mean Corpuscular HGB Conc 33.4 g/dL (31.0-36.0); Mean Corpuscular Hemoglobin 28.9 pg (26.0-34.0); Monocytes # (Auto) 0.4 K/mcL (0.1-0.9); Monocytes % (Auto) 7.8 % (1.0-12.0); Platelet Count 222 K/mcL (140-440); RBC 3.97 M/mcL (4.00-5.20); Red Cell Distribution Width 15.6 % (11.5-14.5)
[2017-02-02] MEDS: metroNIDAZOLE 500 MG/100 ML BAG IV SCH ×4 (06:12→22:45)
[2017-02-02] MEDS: 0.9 % SODIUM CHLORIDE 10 ML SYRINGE IV SCH ×2 (06:12→16:22)
[2017-02-02 06:20] LABS: ALT/SGPT 10 U/l (0-40); Albumin 3.4 gm/dL (3.2-5.2); Alkaline Phosphatase 34 U/L (39-117); Bilirubin,Direct < 0.2 mg/dL (0.0-0.3); Blood Urea Nitrogen 5 mg/dl (6-20); Gamma Glutamyl Transpeptidase 22 U/L (5-36); Magnesium 2.1 mg/dL (1.6-2.5); Uric Acid 3.2 mg/dL (2.5-8.0)
[2017-02-02] MEDS ORDERED: PROMETHAZINE 25 MG/ML VIAL IM PRN (06:37)
[2017-02-02] MEDS: LEVOTHYROXINE 25 MCG TABLET PO SCH (07:36)
[2017-02-02] MEDS: PANTOPRAZOLE 40 MG TABLET PO SCH (07:36)
[2017-02-02] MEDS: LISINOPRIL 10 MG TABLET PO SCH (08:25)
[2017-02-02] MEDS ORDERED: POTASSIUM CHLORIDE 20 MEQ in DEXTROSE 5% IN WATER 250 ML IV ONE (08:26)
[2017-02-02] MEDS: ENOXAPARIN 40 MG/0.4 ML SYRINGE SQ SCH (09:13)
[2017-02-02] MEDS: SERTRALINE 50 MG TABLET PO SCH (09:13)
[2017-02-02] MEDS: HYDROCHLOROTHIAZIDE 25 MG TABLET PO SCH (09:13)
[2017-02-02] MEDS: FUROSEMIDE 20 MG TABLET PO SCH (09:13)
[2017-02-02] MEDS ORDERED: MIDAZOLAM 2 MG/2 ML VIAL IV ONE (11:15)
[2017-02-02] MEDS ORDERED: SUCCINYLCHOLINE 20 MG/ML ML IV ONE (11:15)
[2017-02-02] MEDS ORDERED: PROPOFOL 200 MG/20 ML VIAL IV ONE (11:15)
[2017-02-02] MEDS ORDERED: ROCURONIUM 10 MG/ML ML IV ONE (11:15)
[2017-02-02] MEDS ORDERED: LIDOCAINE HCL/PF 100 MG/5 ML SYRINGE IV ONE (11:15)
[2017-02-02] MEDS ORDERED: ONDANSETRON 4 MG/2 ML VIAL IV ONE (11:15)
[2017-02-02] MEDS ORDERED: NEOSTIGMINE 1 MG/ML VIAL IV ONE (11:15)
[2017-02-02] MEDS ORDERED: DEXAMETHASONE 10 MG/ML VIAL IV ONE (11:15)
[2017-02-02] MEDS ORDERED: fentaNYL 250 MCG/5 ML VIAL IV ONE (11:15)
[2017-02-02] MEDS ORDERED: GLYCOPYRROLATE 0.2 MG/ML VIAL IV ONE (11:15)
[2017-02-02] MEDS ORDERED: NALOXONE HCL 0.4 MG/ML VIAL IV PRN (13:05)
[2017-02-02] MEDS ORDERED: ONDANSETRON 4 MG/2 ML VIAL IV PRN (13:05)
[2017-02-02] MEDS ORDERED: METHOCARBAMOL 1,000 MG/10 ML VIAL IV PRN (13:05)
[2017-02-02] MEDS ORDERED: FLUMAZENIL 0.1 MG/ML ML IV PRN (13:05)
[2017-02-02] MEDS ORDERED: BENZOCAINE/MENTHOL 1 LOZENGE PO PRN (13:05)
[2017-02-02] MEDS ORDERED: diphenhydrAMINE 50 MG/ML VIAL IV PRN (13:05)
[2017-02-02] MEDS ORDERED: IPRATROPIUM/ALBUTEROL 3 ML AMPUL.NEB NEB PRN (13:05)
[2017-02-02] MEDS ORDERED: ACETAMINOPHEN 1,000 MG/100 ML BOTTLE IV ONE (13:05)
[2017-02-02] MEDS ORDERED: MEPERIDINE 25 MG/ML SYRINGE IV PRN (13:05)
[2017-02-02] MEDS ORDERED: KETOROLAC 30 MG/ML VIAL IV PRN (13:05)
[2017-02-02] MEDS ORDERED: LACTATED RINGERS 250 ML IV PRN (13:05)
[2017-02-02] MEDS ORDERED: LACTATED RINGERS 1,000 ML IV SCH (13:15)
[2017-02-02] MEDS ORDERED: BACITRACIN 50,000 UNIT VIAL IR ONE (13:39)
--- NOTE | 2017-02-02 13:59 | Brief Operative Note ---
Date of procedure: 02/02/17 Pre-op diagnosis: diverticulitis with abscess Post-op diagnosis: other (diverticulitis with abscess) Procedure: SEGMENTAL LEFT COLECTOMY Grafts/Implants: No (POONAM DRAIN X2 IN PELVISAND LLQ) Anesthesia: GETA Findings: LARGE MIDSIGMOID DIVERTICULITIS WITH RETROPERITONEAL ABSCESS Complications: none Surgeon: Cj Buckley Estimated blood loss (cc): 350 Specimens Removed/Pathology: other (SIGMOID COLON SEGMENT) Condition: stable Disposition: PACU
[2017-02-02] MEDS ORDERED: POTASSIUM CHLORIDE 40 MEQ in DEXTROSE 5% IN WATER 500 ML IV ONE (14:08)
[2017-02-02] MEDS: fentaNYL 100 MCG/2 ML VIAL IV PRN ×4 (14:20→14:28)
[2017-02-02] MEDS: HYDROmorphone 2 MG/ML SYRINGE IV PRN ×6 (14:29→21:16)
[2017-02-02] MEDS ORDERED: ACETAMINOPHEN 1,000 MG/100 ML BOTTLE IV PRN (15:07)
[2017-02-02] MEDS: PANTOPRAZOLE 40 MG VIAL IV SCH (17:08)
[2017-02-02] MEDS: METOCLOPRAMIDE 10 MG/2 ML VIAL IV SCH (17:24)
[2017-02-02] MEDS: 0.9 % SODIUM CHLORIDE 1,000 ML IV SCH (19:56)
[2017-02-02] MEDS: ACETAMINOPHEN 1,000 MG/100 ML BOTTLE IV PRN (20:00)
[2017-02-02] MEDS: VANCOMYCIN 1,000 MG in 0.9 % SODIUM CHLORIDE 250 ML IV SCH (21:15)
[2017-02-02] MEDS: LATANOPROST OPHTH DROPS 2.5ML BOTTLE OU SCH (23:17)
[2017-02-03] MEDS: 0.9 % SODIUM CHLORIDE 1,000 ML IV SCH ×4 (00:29→16:39)
[2017-02-03] MEDS: ACETAMINOPHEN 1,000 MG/100 ML BOTTLE IV PRN ×4 (01:44→21:36)
[2017-02-03] MEDS: metroNIDAZOLE 500 MG/100 ML BAG IV SCH ×4 (04:59→23:07)
[2017-02-03] MEDS: METOCLOPRAMIDE 10 MG/2 ML VIAL IV SCH ×4 (05:46→17:49)
[2017-02-03] MEDS: PIPERACILLIN SODIUM/TAZOBACTAM 3.375 GM in DEXTROSE 5% IN WATER 50 ML IV SCH ×4 (05:46→19:27)
[2017-02-03 06:09] LABS: Basophils # (Auto) 0 K/mcL (0.0-0.3); Basophils % (Auto) 0.2 % (0.0-2.0); Eosinophils # (Auto) 0.1 K/mcL (0.0-0.7); Eosinophils % (Auto) 0.6 % (0.0-7.0); Granulocytes % (Auto) 80.4 % (38.0-78.0); Lymphocytes # (Auto) 1.1 K/mcL (1.5-4.8); Lymphocytes % (Auto) 10.7 % (15.5-49.0); Mean Cell Volume 86.8 fL (80.0-100.0); Mean Corpuscular Hemoglobin 28.6 pg (26.0-34.0); Monocytes # (Auto) 0.8 K/mcL (0.1-0.9); Monocytes % (Auto) 8.1 % (1.0-12.0); Platelet Count 271 K/mcL (140-440); Red Cell Distribution Width 15.8 % (11.5-14.5)
--- NOTE | 2017-02-03 06:23 | XRay Report ---
CLINICAL INFORMATION: NG tube placement COMPARISON: None. FINDINGS: NG tube overlies the gastric antrum. GI tract is decompressed. There is no free air. There are multiple surgical drains overlie the pelvis. IMPRESSION: NG tube overlying the gastric antrum. Decompressed GI tract - no acute disease evident Interpreted and Authenticated by: Coy Lyons 02/03/17
[2017-02-03 06:34] LABS: ALT/SGPT 10 U/l (0-40); Albumin 2.9 gm/dL (3.2-5.2); Alkaline Phosphatase 31 U/L (39-117); Bilirubin,Direct < 0.2 mg/dL (0.0-0.3); Blood Urea Nitrogen 5 mg/dl (6-20); Gamma Glutamyl Transpeptidase 23 U/L (5-36); Magnesium 1.8 mg/dL (1.6-2.5); Uric Acid 2.6 mg/dL (2.5-8.0)
[2017-02-03] MEDS: HYDROmorphone 2 MG/ML SYRINGE IV PRN ×4 (06:40→20:28)
[2017-02-03] MEDS: PANTOPRAZOLE 40 MG VIAL IV SCH ×2 (08:10→17:49)
[2017-02-03] MEDS: VANCOMYCIN 1,000 MG in 0.9 % SODIUM CHLORIDE 250 ML IV SCH ×2 (08:50→20:28)
--- NOTE | 2017-02-03 09:15 | XRay Report ---
CLINICAL INFORMATION: PICC placement COMPARISON: 02/01/2017 FINDINGS: Left PICC line tip overlies the SVC/ right atrial junction. NG tip overlies the gastric body. Cardiac mediastinal silhouette and pulmonary vessels are normal. Lungs are clear. No effusions IMPRESSION: PICC line satisfactory position. No acute disease Interpreted and Authenticated by: Coy Lyons 02/03/17
--- NOTE | 2017-02-03 15:46 | General Surgery Progress Note ---
Subjective Patient reports: feels better, pain is less, no flatus, no bowel movement, afebrile Narrative: Note initiated : 02/03/17 at 3:44 pm Service Date, if different from initiated Date: [] Patient: Shanika Robles 56 y/o F admitted on 01/27/17 for Diverticulitis. Chief Complaint: [Patient is doing well. Her pain is fairly well controlled. She was able to ambulate today without difficulty. She has not had flatus.] Objective Temp Pulse Resp BP Pulse Ox 98.6 F 56 L 16 153/83 94 02/03/17 15:40 02/03/17 15:40 02/03/17 15:40 02/03/17 15:40 02/03/17 15:40 - Additional Data Intake & Output - Last 24 hours: Intake & Output 02/01/17 02/02/17 02/03/17 02/04/17 05:59 05:59 05:59 05:59 Intake Total 4014 / 4014 3000 / 3000 4708 / 4708 1150 / 1150 Output Total 2205 / 2205 1875 / 1875 1709 / 1709 Balance 1809 / 1809 1125 / 1125 2999 / 2999 1150 / 1150 Weight 214 lb 8 oz 208 lb 8 oz 218 lb - General physical appearance no distress, moderate pain - Eyes PERRL - ENT no congestion - Neck no venous distension - Respiratory normal respiratory effort, clear to auscultation - Cardiovascular Cardiovascular exam: Present: normal rate and rhythm, RRR. Absent: JVD - Abdomen tender, bowel sounds, distended (Abdomen is mildly distended; good active bowel sounds; incision looks good; POONAM drain with bloody drainage) - Integumentary no rash, no growths, no abnormal pigmentation - Neurologic normal coordination, normal sensation - Musculoskeletal normal gait, normal posture - Psychiatric oriented to time, oriented to person, oriented to place, speech is normal, memory intact - Labs 02/03/17 04:21 02/03/17 04:21 Diabetes panel 02/03/17 Range/Units 04:21 Sodium 139 (133-145) mmol/L Potassium 3.5 (3.3-5.1) mmol/L Chloride 104 (96-108) mmol/L Carbon Dioxide 23 (22-30) mmol/L BUN 5 L (6-20) mg/dl Creatinine 0.5 L (0.6-1.1) mg/dl Glucose 98 (70-105) mg/dL Calcium 9.1 (8.6-10.4) mg/dl AST 12 (0-37) U/l ALT 10 (0-40) U/l Alkaline Phosphatase 31 L (39-117) U/L Total Protein 5.9 (5.9-8.4) gm/dL Albumin 2.9 L (3.2-5.2) gm/dL Triglycerides 101 (<150) mg/dl Calcium panel 02/03/17 Range/Units 04:21 Calcium 9.1 (8.6-10.4) mg/dl Phosphorus 2.4 L (2.7-4.5) mg/dL Albumin 2.9 L (3.2-5.2) gm/dL Pituitary panel 02/03/17 Range/Units 04:21 Sodium 139 (133-145) mmol/L Potassium 3.5 (3.3-5.1) mmol/L Chloride 104 (96-108) mmol/L Carbon Dioxide 23 (22-30) mmol/L BUN 5 L (6-20) mg/dl Creatinine 0.5 L (0.6-1.1) mg/dl Glucose 98 (70-105) mg/dL Calcium 9.1 (8.6-10.4) mg/dl Adrenal panel 02/03/17 Range/Units 04:21 Sodium 139 (133-145) mmol/L Potassium 3.5 (3.3-5.1) mmol/L Chloride 104 (96-108) mmol/L Carbon Dioxide 23 (22-30) mmol/L BUN 5 L (6-20) mg/dl Creatinine 0.5 L (0.6-1.1) mg/dl Glucose 98 (70-105) mg/dL Calcium 9.1 (8.6-10.4) mg/dl Total Bilirubin 0.3 (0.0-1.0) mg/dL AST 12 (0-37) U/l ALT 10 (0-40) U/l Alkaline Phosphatase 31 L (39-117) U/L Total Protein 5.9 (5.9-8.4) gm/dL Albumin 2.9 L (3.2-5.2) gm/dL Assessment and Plan (1) Diverticulitis of intestine with abscess without bleeding Status: Acute Assessment and plan: Stable postoperative day #1 Current Visit: Yes (2) Anxiety associated with depression Status: Acute Current Visit: Yes (3) Hypertension, essential Status: Chronic Current Visit: No - Time Spent With Patient Total time spent is greater than 50% in coordination of care (as documented) at patient's floor/unit and/or counseling patient:
[2017-02-03] MEDS ORDERED: SODIUM PHOSPHATE 45 MMOL/15 ML VIAL IV ONE (15:49)
[2017-02-03] MEDS ORDERED: SODIUM PHOSPHATE 45 MMOL in DEXTROSE 5% IN WATER 500 ML IV ONE (16:00)
[2017-02-03] MEDS: LATANOPROST OPHTH DROPS 2.5ML BOTTLE OU SCH (20:29)
[2017-02-03] MEDS ORDERED: HYDROmorphone 2 MG/ML SYRINGE ONE (23:06)
[2017-02-04] MEDS: PIPERACILLIN SODIUM/TAZOBACTAM 3.375 GM in DEXTROSE 5% IN WATER 50 ML IV SCH ×4 (00:03→17:44)
[2017-02-04] MEDS: METOCLOPRAMIDE 10 MG/2 ML VIAL IV SCH ×4 (00:41→17:37)
[2017-02-04] MEDS: 0.9 % SODIUM CHLORIDE 1,000 ML IV SCH ×5 (00:41→23:25)
[2017-02-04] MEDS ORDERED: HYDROmorphone 2 MG/ML SYRINGE ONE (02:28)
[2017-02-04] MEDS: ONDANSETRON 4 MG/2 ML VIAL IV PRN (02:33)
[2017-02-04] MEDS ORDERED: METOPROLOL TARTRATE 5 MG/5 ML VIAL IV PRN ×2 (03:41→06:30)
[2017-02-04] MEDS ORDERED: METOPROLOL TARTRATE 5 MG/5 ML VIAL IV ONE ×2 (03:53→05:57)
[2017-02-04] MEDS: metroNIDAZOLE 500 MG/100 ML BAG IV SCH ×4 (04:53→23:25)
[2017-02-04 05:56] LABS: Granulocytes % (Auto) 75.4 % (38.0-78.0); Lymphocytes % (Auto) 12.8 % (15.5-49.0); Mean Cell Volume 87.7 fL (80.0-100.0); Mean Corpuscular HGB Conc 32.5 g/dL (31.0-36.0); Mean Corpuscular Hemoglobin 28.5 pg (26.0-34.0); Platelet Count 178 K/mcL (140-440); RBC 3.22 M/mcL (4.00-5.20); Red Cell Distribution Width 15.8 % (11.5-14.5)
[2017-02-04 05:57] LABS: Basophils # (Auto) 0 K/mcL (0.0-0.3); Basophils % (Auto) 0.3 % (0.0-2.0); Eosinophils # (Auto) 0.3 K/mcL (0.0-0.7); Eosinophils % (Auto) 4.9 % (0.0-7.0); Lymphocytes # (Auto) 0.8 K/mcL (1.5-4.8); Monocytes # (Auto) 0.4 K/mcL (0.1-0.9); Monocytes % (Auto) 6.6 % (1.0-12.0)
[2017-02-04] MEDS ORDERED: LORazepam 2 MG/ML VIAL ONE (06:30)
[2017-02-04 06:46] LABS: ALT/SGPT 6 U/l (0-40); Albumin 2.6 gm/dL (3.2-5.2); Alkaline Phosphatase 31 U/L (39-117); Bilirubin,Direct < 0.2 mg/dL (0.0-0.3); Blood Urea Nitrogen 3 mg/dl (6-20); Gamma Glutamyl Transpeptidase 30 U/L (5-36); Magnesium 1.6 mg/dL (1.6-2.5); Uric Acid 1.7 mg/dL (2.5-8.0)
[2017-02-04] MEDS: PANTOPRAZOLE 40 MG VIAL IV SCH ×2 (07:01→17:37)
[2017-02-04] MEDS: HYDROmorphone 2 MG/ML SYRINGE IV PRN ×4 (07:01→20:55)
--- NOTE | 2017-02-04 07:33 | XRay Report ---
CLINICAL INFORMATION: Tachycardia COMPARISON: 02/03/2017 FINDINGS: NG and PICC line in stable satisfactory position. Moderate cardiomegaly is unchanged. Mediastinum and pulmonary vessels are normal. Lungs are clear. No effusions IMPRESSION: Moderate stable cardiomegaly - no acute disease Interpreted and Authenticated by: Coy Lyons 02/04/17
[2017-02-04] MEDS: POTASSIUM CHLORIDE 40 MEQ in DEXTROSE 5% IN WATER 250 ML IV SCH ×2 (07:51→11:51)
[2017-02-04] MEDS ORDERED: SODIUM PHOSPHATE 45 MMOL/15 ML VIAL IV SCH (08:00)
[2017-02-04] MEDS: VANCOMYCIN 1,500 MG in 0.9 % SODIUM CHLORIDE 500 ML IV SCH ×2 (09:20→20:56)
[2017-02-04] MEDS: SODIUM PHOSPHATE 45 MMOL in DEXTROSE 5% IN WATER 500 ML IV SCH ×2 (13:04→17:19)
[2017-02-04] MEDS: LORazepam 2 MG/ML VIAL IV PRN (14:12)
--- NOTE | 2017-02-04 15:33 | General Surgery Progress Note ---
Subjective Patient reports: feels better, still having pain, pain is less, no flatus, no bowel movement, afebrile Narrative: Note initiated : 02/04/17 at 3:31 pm Service Date, if different from initiated Date: [] Patient: Shanika Robles 56 y/o F admitted on 01/27/17 for Diverticulitis. Chief Complaint: [Patient is feeling better now though she states that she is tired. She had difficulty with supraventricular tachycardia last evening and early this morning. She had heart rates as high as 140. She converted to sinus rhythm with a bradycardia after receiving 2 doses of metoprolol. Her heart rate now is in the high 50s or low 60s. Her blood pressure is stable. She denies any chest pain and she has not had any shortness of breath. She denies abdominal pain other than incisional discomfort. She has not had nausea or vomiting. EKG only showed sinus tachycardia and troponin was less than 0.01. Chest x-ray shows no acute changes. There is been no change in the drainage from her POONAM drains.] Objective Temp Pulse Resp BP Pulse Ox 97.2 F 64 18 122/78 97 02/04/17 12:00 02/04/17 12:00 02/04/17 12:00 02/04/17 12:00 02/04/17 12:00 - Additional Data Intake & Output - Last 24 hours: Intake & Output 02/02/17 02/03/17 02/04/17 02/05/17 05:59 05:59 05:59 05:59 Intake Total 3000 / 3000 4708 / 4708 3300 / 3300 970 / 970 Output Total 1875 / 1875 1709 / 1709 970 / 970 Balance 1125 / 1125 2999 / 2999 2330 / 2330 970 / 970 Weight 208 lb 8 oz 218 lb 218 lb - General physical appearance no distress, other (Somnolent) - Eyes PERRL - ENT no congestion - Neck no venous distension - Respiratory normal respiratory effort, clear to auscultation - Cardiovascular Cardiovascular exam: Present: normal rate and rhythm, bradycardia, RRR, +S1, + S2. Absent: JVD - Abdomen soft, tender, distended (Abdomen is mildly distended but with good active bowel sounds. Her incision looks good and her POONAM drainage is serosanguineous) - Integumentary no rash, no growths, no abnormal pigmentation - Neurologic normal coordination, normal sensation - Musculoskeletal normal gait, normal posture - Psychiatric oriented to time, oriented to person, oriented to place, speech is normal, memory intact - Labs 02/04/17 04:00 02/04/17 04:00 Diabetes panel 02/04/17 Range/Units 04:00 Sodium 144 (133-145) mmol/L Potassium 2.7 L* (3.3-5.1) mmol/L Chloride 112 H (96-108) mmol/L Carbon Dioxide 22 (22-30) mmol/L BUN 3 L (6-20) mg/dl Creatinine 0.3 L (0.6-1.1) mg/dl Glucose 87 (70-105) mg/dL Calcium 7.7 L (8.6-10.4) mg/dl AST 10 (0-37) U/l ALT 6 (0-40) U/l Alkaline Phosphatase 31 L (39-117) U/L Total Protein 5.1 L (5.9-8.4) gm/dL Albumin 2.6 L (3.2-5.2) gm/dL Triglycerides 105 (<150) mg/dl Calcium panel 02/04/17 Range/Units 04:00 Calcium 7.7 L (8.6-10.4) mg/dl Phosphorus 2.3 L (2.7-4.5) mg/dL Albumin 2.6 L (3.2-5.2) gm/dL Pituitary panel 02/04/17 Range/Units 04:00 Sodium 144 (133-145) mmol/L Potassium 2.7 L* (3.3-5.1) mmol/L Chloride 112 H (96-108) mmol/L Carbon Dioxide 22 (22-30) mmol/L BUN 3 L (6-20) mg/dl Creatinine 0.3 L (0.6-1.1) mg/dl Glucose 87 (70-105) mg/dL Calcium 7.7 L (8.6-10.4) mg/dl Adrenal panel 02/04/17 Range/Units 04:00 Sodium 144 (133-145) mmol/L Potassium 2.7 L* (3.3-5.1) mmol/L Chloride 112 H (96-108) mmol/L Carbon Dioxide 22 (22-30) mmol/L BUN 3 L (6-20) mg/dl Creatinine 0.3 L (0.6-1.1) mg/dl Glucose 87 (70-105) mg/dL Calcium 7.7 L (8.6-10.4) mg/dl Total Bilirubin 0.2 (0.0-1.0) mg/dL AST 10 (0-37) U/l ALT 6 (0-40) U/l Alkaline Phosphatase 31 L (39-117) U/L Total Protein 5.1 L (5.9-8.4) gm/dL Albumin 2.6 L (3.2-5.2) gm/dL Assessment and Plan (1) Diverticulitis of intestine with abscess without bleeding Status: Acute Assessment and plan: Stable postoperative day #2 Current Visit: Yes (2) Anxiety associated with depression Status: Acute Assessment and plan: We will restart Zoloft and Desyrel p.o. Current Visit: Yes (3) Hypertension, essential Status: Chronic Current Visit: No - Time Spent With Patient Total time spent is greater than 50% in coordination of care (as documented) at patient's floor/unit and/or counseling patient:
--- NOTE | 2017-02-04 15:38 | Surgical Pathology Report ---
HISTOLOGY SPECIMEN MICROSCOPIC DIAGNOSIS COLON, SIGMOID, SEGMENTAL RESECTION: -- PERFORATED ACUTE DIVERTICULITIS WITH ASSOCIATED PERICOLONIC ABSCESS. -- TWO MESENTERIC LYMPH NODES WITH REACTIVE LYMPHOID HYPERPLASIA. -- MARGINS VIABLE. (DMT:shi) CLINICAL HISTORY Diverticulitis with abscess. GROSS DESCRIPTION Received in formalin labeled sigmoid colon, is a aldrich segment of colon received with both ends stapled. It is 14.4 cm in length with an average diameter of 3.5 cm. There is some aldrich attached fat. The wall is up to 0.6 cm thick. The serosa is aldrich-pink. The mucosa is aldrich with a normal plicated pattern. The staple margin is inked black. The specimen is opened along it antimesenteric surface to reveal brown fecal material. A few diverticula are present. A small microscopic perforation is seen in the bowel wall 5.2 cm from the nearest stapled margin. This perforation is associated with a 3.5 cm in greatest dimension ragged aldrich-red area of submucosal tissue. Two candidate lymph nodes are identified. Financial [employer] President sections submitted - four cassettes: A1 - margins; A2 - treasury representative possible diverticula; A3 - perforation; A4 - random section. (SCB:shi) Electronically Signed by: Ravinder Mendoza M.D.
[2017-02-04] MEDS: traZODone HCL 150 MG TABLET PO SCH (20:56)
[2017-02-04] MEDS: LATANOPROST OPHTH DROPS 2.5ML BOTTLE OU SCH (20:57)
[2017-02-05] MEDS: PIPERACILLIN SODIUM/TAZOBACTAM 3.375 GM in DEXTROSE 5% IN WATER 50 ML IV SCH ×4 (00:13→17:53)
[2017-02-05] MEDS: METOCLOPRAMIDE 10 MG/2 ML VIAL IV SCH ×4 (00:13→17:53)
[2017-02-05] MEDS: HYDROmorphone 2 MG/ML SYRINGE IV PRN ×5 (00:13→20:33)
[2017-02-05] MEDS: metroNIDAZOLE 500 MG/100 ML BAG IV SCH ×4 (05:14→22:57)
[2017-02-05 06:32] LABS: Basophils # (Auto) 0 K/mcL (0.0-0.3); Basophils % (Auto) 0.7 % (0.0-2.0); Eosinophils # (Auto) 0.3 K/mcL (0.0-0.7); Eosinophils % (Auto) 6.4 % (0.0-7.0); Lymphocytes # (Auto) 0.8 K/mcL (1.5-4.8); Lymphocytes % (Auto) 15.6 % (15.5-49.0); Mean Cell Volume 87.4 fL (80.0-100.0); Mean Corpuscular HGB Conc 33.4 g/dL (31.0-36.0); Mean Corpuscular Hemoglobin 29.2 pg (26.0-34.0); Monocytes # (Auto) 0.4 K/mcL (0.1-0.9); Monocytes % (Auto) 7.3 % (1.0-12.0); Platelet Count 170 K/mcL (140-440); RBC 3.25 M/mcL (4.00-5.20); Red Cell Distribution Width 15.9 % (11.5-14.5)
[2017-02-05] MEDS: PANTOPRAZOLE 40 MG VIAL IV SCH ×2 (07:10→16:41)
[2017-02-05 07:27] LABS: ALT/SGPT 7 U/l (0-40); Albumin 2.7 gm/dL (3.2-5.2); Albumin/Globulin Ratio 0.9 (1.0-2.3); Alkaline Phosphatase 34 U/L (39-117); Bilirubin,Direct < 0.2 mg/dL (0.0-0.3); Blood Urea Nitrogen 3 mg/dl (6-20); Gamma Glutamyl Transpeptidase 32 U/L (5-36); Magnesium 1.7 mg/dL (1.6-2.5)
[2017-02-05] MEDS: 0.9 % SODIUM CHLORIDE 1,000 ML IV SCH ×3 (08:57→20:32)
[2017-02-05] MEDS: SERTRALINE 50 MG TABLET PO SCH (08:57)
[2017-02-05] MEDS: VANCOMYCIN 1,500 MG in 0.9 % SODIUM CHLORIDE 500 ML IV SCH ×2 (10:14→20:31)
[2017-02-05] MEDS: ONDANSETRON 4 MG/2 ML VIAL IV PRN (11:09)
[2017-02-05] MEDS: POTASSIUM CHLORIDE 40 MEQ in DEXTROSE 5% IN WATER 500 ML IV SCH ×2 (12:01→16:09)
--- NOTE | 2017-02-05 13:10 | General Surgery Progress Note ---
Subjective Patient reports: feels better, pain is less, no flatus, no bowel movement, afebrile Narrative: Note initiated : 02/05/17 at 1:08 pm Service Date, if different from initiated Date: [] Patient: Shanika Robles 56 y/o F admitted on 01/27/17 for Diverticulitis. Chief Complaint: [Mrs. Robles is doing better today. She has less pain. She is still somewhat somnolent but she was able to ambulate earlier today. She denies nausea. She has not had flatus or bowel movement. She has been afebrile. Her heart rate has been well controlled and her blood pressure is stable. Her incisional pain is well controlled] Objective Temp Pulse Resp BP Pulse Ox 98.4 F 64 18 153/77 94 02/05/17 11:35 02/05/17 04:00 02/05/17 11:35 02/05/17 11:35 02/05/17 11:35 - Additional Data Intake & Output - Last 24 hours: Intake & Output 02/03/17 02/04/17 02/05/17 02/06/17 05:59 05:59 05:59 05:59 Intake Total 4708 / 4708 3300 / 3300 3775 / 3775 150 / 150 Output Total 1709 / 1709 970 / 970 3225 / 3225 580 / 580 Balance 2999 / 2999 2330 / 2330 550 / 550 -430 / -430 Weight 218 lb 218 lb 240 lb 11.2 oz - General physical appearance no distress - Eyes PERRL - ENT no congestion - Neck no venous distension - Respiratory clear to auscultation - Cardiovascular Cardiovascular exam: Present: normal rate and rhythm, RRR, +S1, +S2. Absent: JVD - Abdomen tender, distended (Mild distention but with active bowel sounds; mild tenderness of her incision but otherwise abdomen is benign POONAM drainage is serosanguineous) - Integumentary no rash, no growths, no abnormal pigmentation - Neurologic normal coordination, normal sensation - Musculoskeletal normal gait, normal posture - Psychiatric oriented to time, oriented to person, oriented to place, speech is normal, memory intact - Labs 02/05/17 04:00 02/05/17 04:00 Diabetes panel 02/05/17 Range/Units 04:00 Sodium 143 (133-145) mmol/L Potassium 3.2 L (3.3-5.1) mmol/L Chloride 108 (96-108) mmol/L Carbon Dioxide 24 (22-30) mmol/L BUN 3 L (6-20) mg/dl Creatinine 0.6 (0.6-1.1) mg/dl Glucose 104 (70-105) mg/dL Calcium 9.0 (8.6-10.4) mg/dl AST 9 (0-37) U/l ALT 7 (0-40) U/l Alkaline Phosphatase 34 L (39-117) U/L Total Protein 5.6 L (5.9-8.4) gm/dL Albumin 2.7 L (3.2-5.2) gm/dL Triglycerides 112 (<150) mg/dl Calcium panel 02/05/17 Range/Units 04:00 Calcium 9.0 (8.6-10.4) mg/dl Phosphorus 3.5 (2.7-4.5) mg/dL Albumin 2.7 L (3.2-5.2) gm/dL Pituitary panel 02/05/17 Range/Units 04:00 Sodium 143 (133-145) mmol/L Potassium 3.2 L (3.3-5.1) mmol/L Chloride 108 (96-108) mmol/L Carbon Dioxide 24 (22-30) mmol/L BUN 3 L (6-20) mg/dl Creatinine 0.6 (0.6-1.1) mg/dl Glucose 104 (70-105) mg/dL Calcium 9.0 (8.6-10.4) mg/dl Adrenal panel 02/05/17 Range/Units 04:00 Sodium 143 (133-145) mmol/L Potassium 3.2 L (3.3-5.1) mmol/L Chloride 108 (96-108) mmol/L Carbon Dioxide 24 (22-30) mmol/L BUN 3 L (6-20) mg/dl Creatinine 0.6 (0.6-1.1) mg/dl Glucose 104 (70-105) mg/dL Calcium 9.0 (8.6-10.4) mg/dl Total Bilirubin 0.3 (0.0-1.0) mg/dL AST 9 (0-37) U/l ALT 7 (0-40) U/l Alkaline Phosphatase 34 L (39-117) U/L Total Protein 5.6 L (5.9-8.4) gm/dL Albumin 2.7 L (3.2-5.2) gm/dL Assessment and Plan (1) Diverticulitis of intestine with abscess without bleeding Status: Acute Assessment and plan: Stable postoperative day #3 Current Visit: Yes (2) Anxiety associated with depression Status: Acute Assessment and plan: Much improved on the desyrel and Zoloft Current Visit: Yes (3) Hypertension, essential Status: Chronic Assessment and plan: Presently controlled Current Visit: Yes - Time Spent With Patient Total time spent is greater than 50% in coordination of care (as documented) at patient's floor/unit and/or counseling patient:
[2017-02-05] MEDS: traZODone HCL 150 MG TABLET PO SCH (20:31)
[2017-02-05] MEDS: LATANOPROST OPHTH DROPS 2.5ML BOTTLE OU SCH (20:32)
[2017-02-05] MEDS: LORazepam 2 MG/ML VIAL IV PRN (22:58)
[2017-02-06] MEDS: PIPERACILLIN SODIUM/TAZOBACTAM 3.375 GM in DEXTROSE 5% IN WATER 50 ML IV SCH ×4 (00:28→17:28)
[2017-02-06] MEDS: METOCLOPRAMIDE 10 MG/2 ML VIAL IV SCH ×4 (00:28→17:28)
[2017-02-06] MEDS: 0.9 % SODIUM CHLORIDE 1,000 ML IV SCH ×4 (00:54→17:27)
[2017-02-06] MEDS: HYDROmorphone 2 MG/ML SYRINGE IV PRN ×6 (03:25→22:11)
[2017-02-06] MEDS: metroNIDAZOLE 500 MG/100 ML BAG IV SCH ×4 (05:09→23:30)
[2017-02-06 06:30] LABS: ALT/SGPT 6 U/l (0-40); Albumin 2.7 gm/dL (3.2-5.2); Alkaline Phosphatase 33 U/L (39-117); Bilirubin,Direct < 0.2 mg/dL (0.0-0.3); Blood Urea Nitrogen 3 mg/dl (6-20); Gamma Glutamyl Transpeptidase 31 U/L (5-36); Magnesium 1.8 mg/dL (1.6-2.5); Uric Acid 2.4 mg/dL (2.5-8.0)
[2017-02-06] MEDS: PANTOPRAZOLE 40 MG VIAL IV SCH ×2 (07:13→17:28)
[2017-02-06] MEDS: VANCOMYCIN 1,500 MG in 0.9 % SODIUM CHLORIDE 500 ML IV SCH ×2 (08:50→20:24)
[2017-02-06] MEDS: SERTRALINE 50 MG TABLET PO SCH (10:40)
[2017-02-06] MEDS: POTASSIUM PHOSPHATE 40 MEQ in DEXTROSE 5% IN WATER 500 ML IV SCH ×2 (10:40→16:05)
[2017-02-06] MEDS: ONDANSETRON 4 MG/2 ML VIAL IV PRN (12:36)
--- NOTE | 2017-02-06 15:00 | General Surgery Progress Note ---
Subjective Patient reports: feels better, pain is less, flatus, no bowel movement, afebrile Narrative: Note initiated : 02/06/17 at 2:58 pm Service Date, if different from initiated Date: [] Patient: Shanika Robles 56 y/o F admitted on 01/27/17 for Diverticulitis. Chief Complaint: [Mrs. robles is doing very well. she states that her pain is better controlled. She has been able to sleep and overall feels much better. She denies any chest pain or shortness of breath. She has not had any palpitations. She denies cough. Her abdominal pain is well controlled. She has had multiple episodes of flatus. Her urine output is excellent.] Objective Temp Pulse Resp BP Pulse Ox 98.9 F 79 18 132/82 98 02/06/17 11:44 02/06/17 03:53 02/06/17 11:44 02/06/17 11:44 02/06/17 11:44 - Additional Data Intake & Output - Last 24 hours: Intake & Output 02/04/17 02/05/17 02/06/17 02/07/17 05:59 05:59 05:59 05:59 Intake Total 3300 / 3300 3775 / 3775 4480 / 4480 390 / 390 Output Total 970 / 970 3225 / 3225 3172 / 3172 Balance 2330 / 2330 550 / 550 1308 / 1308 390 / 390 Weight 218 lb 240 lb 11.2 oz 240 lb 240 lb - General physical appearance no distress - Eyes PERRL - ENT no congestion - Neck no venous distension - Respiratory normal respiratory effort, clear to auscultation - Cardiovascular Cardiovascular exam: Present: normal rate and rhythm, RRR, +S1, +S2. Absent: JVD - Abdomen soft, bowel sounds, distended (Abdomen is soft with mild distention; she has good active bowel sounds; her incision looks good; POONAM drainage is copious but serosanguineous) - Integumentary no rash, no growths, no abnormal pigmentation - Neurologic normal coordination, normal sensation - Musculoskeletal normal gait, normal posture - Psychiatric oriented to time, oriented to person, oriented to place, speech is normal, memory intact - Labs 02/05/17 04:00 02/06/17 04:16 Diabetes panel 02/06/17 Range/Units 04:16 Sodium 144 (133-145) mmol/L Potassium 3.5 (3.3-5.1) mmol/L Chloride 111 H (96-108) mmol/L Carbon Dioxide 25 (22-30) mmol/L BUN 3 L (6-20) mg/dl Creatinine 0.6 (0.6-1.1) mg/dl Glucose 104 (70-105) mg/dL Calcium 8.8 (8.6-10.4) mg/dl AST 9 (0-37) U/l ALT 6 (0-40) U/l Alkaline Phosphatase 33 L (39-117) U/L Total Protein 5.5 L (5.9-8.4) gm/dL Albumin 2.7 L (3.2-5.2) gm/dL Triglycerides 89 (<150) mg/dl Calcium panel 02/06/17 Range/Units 04:16 Calcium 8.8 (8.6-10.4) mg/dl Phosphorus 2.2 L (2.7-4.5) mg/dL Albumin 2.7 L (3.2-5.2) gm/dL Pituitary panel 02/06/17 Range/Units 04:16 Sodium 144 (133-145) mmol/L Potassium 3.5 (3.3-5.1) mmol/L Chloride 111 H (96-108) mmol/L Carbon Dioxide 25 (22-30) mmol/L BUN 3 L (6-20) mg/dl Creatinine 0.6 (0.6-1.1) mg/dl Glucose 104 (70-105) mg/dL Calcium 8.8 (8.6-10.4) mg/dl Adrenal panel 02/06/17 Range/Units 04:16 Sodium 144 (133-145) mmol/L Potassium 3.5 (3.3-5.1) mmol/L Chloride 111 H (96-108) mmol/L Carbon Dioxide 25 (22-30) mmol/L BUN 3 L (6-20) mg/dl Creatinine 0.6 (0.6-1.1) mg/dl Glucose 104 (70-105) mg/dL Calcium 8.8 (8.6-10.4) mg/dl Total Bilirubin 0.3 (0.0-1.0) mg/dL AST 9 (0-37) U/l ALT 6 (0-40) U/l Alkaline Phosphatase 33 L (39-117) U/L Total Protein 5.5 L (5.9-8.4) gm/dL Albumin 2.7 L (3.2-5.2) gm/dL Assessment and Plan (1) Diverticulitis of intestine with abscess without bleeding Status: Acute Assessment and plan: Stable postoperative day #4 Discontinue nasogastric tube Discontinue Carrington catheter Clear liquids in the morning Current Visit: Yes (2) Anxiety associated with depression Status: Acute Assessment and plan: Much improved on the desyrel and Zoloft Current Visit: Yes (3) Hypertension, essential Status: Chronic Assessment and plan: Presently controlled Current Visit: Yes - Time Spent With Patient Total time spent is greater than 50% in coordination of care (as documented) at patient's floor/unit and/or counseling patient:
[2017-02-06] MEDS: traZODone HCL 150 MG TABLET PO SCH (20:12)
[2017-02-06] MEDS: LATANOPROST OPHTH DROPS 2.5ML BOTTLE OU SCH (20:13)
[2017-02-07] MEDS: 0.9 % SODIUM CHLORIDE 1,000 ML IV SCH ×3 (00:15→19:56)
[2017-02-07] MEDS: METOCLOPRAMIDE 10 MG/2 ML VIAL IV SCH ×4 (00:15→17:20)
[2017-02-07] MEDS: PIPERACILLIN SODIUM/TAZOBACTAM 3.375 GM in DEXTROSE 5% IN WATER 50 ML IV SCH ×4 (00:51→18:40)
[2017-02-07] MEDS: HYDROmorphone 2 MG/ML SYRINGE IV PRN ×6 (02:55→22:57)
[2017-02-07] MEDS: metroNIDAZOLE 500 MG/100 ML BAG IV SCH ×4 (04:24→22:53)
[2017-02-07 07:09] LABS: Basophils # (Auto) 0 K/mcL (0.0-0.3); Basophils % (Auto) 0.6 % (0.0-2.0); Eosinophils # (Auto) 0.3 K/mcL (0.0-0.7); Eosinophils % (Auto) 4.4 % (0.0-7.0); Lymphocytes # (Auto) 0.7 K/mcL (1.5-4.8); Lymphocytes % (Auto) 10.6 % (15.5-49.0); Mean Cell Volume 87.6 fL (80.0-100.0); Monocytes # (Auto) 0.3 K/mcL (0.1-0.9); Monocytes % (Auto) 5.4 % (1.0-12.0); Platelet Count 173 K/mcL (140-440); RBC 3.07 M/mcL (4.00-5.20); Red Cell Distribution Width 16.1 % (11.5-14.5)
[2017-02-07] MEDS: PANTOPRAZOLE 40 MG VIAL IV SCH ×2 (07:27→17:21)
[2017-02-07 07:33] LABS: ALT/SGPT 7 U/l (0-40); Albumin 2.6 gm/dL (3.2-5.2); Albumin/Globulin Ratio 0.9 (1.0-2.3); Alkaline Phosphatase 36 U/L (39-117); Bilirubin,Direct < 0.2 mg/dL (0.0-0.3); Blood Urea Nitrogen 4 mg/dl (6-20); Gamma Glutamyl Transpeptidase 38 U/L (5-36); Magnesium 1.8 mg/dL (1.6-2.5); Uric Acid 2.6 mg/dL (2.5-8.0)
[2017-02-07] MEDS: VANCOMYCIN 1,500 MG in 0.9 % SODIUM CHLORIDE 500 ML IV SCH (08:21)
[2017-02-07] MEDS: SERTRALINE 50 MG TABLET PO SCH (08:22)
[2017-02-07] MEDS: ONDANSETRON 4 MG/2 ML VIAL IV PRN ×2 (11:00→19:57)
[2017-02-07] MEDS ORDERED: 0.9 % SODIUM CHLORIDE 250 ML IV SCH (13:15)
--- NOTE | 2017-02-07 14:12 | General Surgery Progress Note ---
Subjective Patient reports: feels better, still having pain, tolerating liquids well, voiding w/o difficulty, flatus, bowel movement, afebrile Narrative: Note initiated : 02/07/17 at 2:10 pm Service Date, if different from initiated Date: [] Patient: Shanika Robles 56 y/o F admitted on 01/27/17 for Diverticulitis. Chief Complaint: [Patient states that she is having some crampy abdominal pain. She has had bowel movement and is passing flatus without difficulty. She does not appear to be in any acute distress. Her abdomen is not significantly distended. POONAM drainage is serosanguineous. She is afebrile and her white blood count is normal.] Objective Temp Pulse Resp BP Pulse Ox 97.0 F 71 18 131/72 94 02/07/17 11:52 02/07/17 04:00 02/07/17 11:52 02/07/17 11:52 02/07/17 11:52 - Additional Data Intake & Output - Last 24 hours: Intake & Output 02/05/17 02/06/17 02/07/17 02/08/17 05:59 05:59 05:59 05:59 Intake Total 3775 / 3775 4480 / 4480 4932.0909 / 4932.0909 2009 Output Total 3225 / 3225 3172 / 3172 2267 / 2267 860 / 860 Balance 550 / 550 1308 / 1308 2665.0909 / 2665.0909 1150 / 1150 Weight 240 lb 11.2 oz 240 lb 226 lb - General physical appearance moderate distress, moderate pain - Eyes PERRL - ENT no congestion - Neck no venous distension - Cardiovascular Cardiovascular exam: Present: normal rate and rhythm, RRR, +S1, +S2. Absent: JVD - Abdomen soft, non tender, bowel sounds, distended (Abdomen is minimally distended; she has good active bowel sounds; her incision looks good;) - Integumentary no growths, other (Rash and excoriations on legs have significantly improved while hospitalized) - Neurologic normal coordination, normal sensation - Musculoskeletal normal gait, normal posture - Psychiatric oriented to time, oriented to person, oriented to place, speech is normal, memory intact - Labs 02/07/17 04:00 02/07/17 04:00 Diabetes panel 02/07/17 Range/Units 04:00 Sodium 144 (133-145) mmol/L Potassium 3.7 (3.3-5.1) mmol/L Chloride 108 (96-108) mmol/L Carbon Dioxide 23 (22-30) mmol/L BUN 4 L (6-20) mg/dl Creatinine 0.8 (0.6-1.1) mg/dl Glucose 92 (70-105) mg/dL Calcium 9.1 (8.6-10.4) mg/dl AST 11 (0-37) U/l ALT 7 (0-40) U/l Alkaline Phosphatase 36 L (39-117) U/L Total Protein 5.5 L (5.9-8.4) gm/dL Albumin 2.6 L (3.2-5.2) gm/dL Triglycerides 85 (<150) mg/dl Calcium panel 02/07/17 Range/Units 04:00 Calcium 9.1 (8.6-10.4) mg/dl Phosphorus 3.3 (2.7-4.5) mg/dL Albumin 2.6 L (3.2-5.2) gm/dL Pituitary panel 02/07/17 Range/Units 04:00 Sodium 144 (133-145) mmol/L Potassium 3.7 (3.3-5.1) mmol/L Chloride 108 (96-108) mmol/L Carbon Dioxide 23 (22-30) mmol/L BUN 4 L (6-20) mg/dl Creatinine 0.8 (0.6-1.1) mg/dl Glucose 92 (70-105) mg/dL Calcium 9.1 (8.6-10.4) mg/dl Adrenal panel 02/07/17 Range/Units 04:00 Sodium 144 (133-145) mmol/L Potassium 3.7 (3.3-5.1) mmol/L Chloride 108 (96-108) mmol/L Carbon Dioxide 23 (22-30) mmol/L BUN 4 L (6-20) mg/dl Creatinine 0.8 (0.6-1.1) mg/dl Glucose 92 (70-105) mg/dL Calcium 9.1 (8.6-10.4) mg/dl Total Bilirubin 0.4 (0.0-1.0) mg/dL AST 11 (0-37) U/l ALT 7 (0-40) U/l Alkaline Phosphatase 36 L (39-117) U/L Total Protein 5.5 L (5.9-8.4) gm/dL Albumin 2.6 L (3.2-5.2) gm/dL Assessment and Plan (1) Diverticulitis of intestine with abscess without bleeding Status: Acute Assessment and plan: Stable postoperative day #5 Diet will be advanced in the morning Possible discharge late tomorrow evening Current Visit: Yes (2) Anxiety associated with depression Status: Acute Assessment and plan: Much improved on the desyrel and Zoloft Current Visit: Yes (3) Hypertension, essential Status: Chronic Assessment and plan: Presently controlled Current Visit: Yes - Time Spent With Patient Total time spent is greater than 50% in coordination of care (as documented) at patient's floor/unit and/or counseling patient:
[2017-02-07] MEDS: LATANOPROST OPHTH DROPS 2.5ML BOTTLE OU SCH (21:20)
[2017-02-07] MEDS: traZODone HCL 150 MG TABLET PO SCH (21:25)
[2017-02-08] MEDS: METOCLOPRAMIDE 10 MG/2 ML VIAL IV SCH ×4 (00:24→17:34)
[2017-02-08] MEDS: PIPERACILLIN SODIUM/TAZOBACTAM 3.375 GM in DEXTROSE 5% IN WATER 50 ML IV SCH ×4 (00:25→17:34)
[2017-02-08] MEDS: HYDROmorphone 2 MG/ML SYRINGE IV PRN ×4 (02:13→11:24)
[2017-02-08] MEDS: 0.9 % SODIUM CHLORIDE 1,000 ML IV SCH ×2 (03:16→07:59)
[2017-02-08] MEDS: metroNIDAZOLE 500 MG/100 ML BAG IV SCH ×3 (05:17→17:32)
[2017-02-08] MEDS: PANTOPRAZOLE 40 MG VIAL IV SCH ×2 (06:38→17:33)
[2017-02-08] MEDS: SERTRALINE 50 MG TABLET PO SCH (09:18)
[2017-02-08] MEDS: ONDANSETRON 4 MG/2 ML VIAL IV PRN ×2 (09:48→16:27)
[2017-02-08 13:55] LABS: Basophils # (Auto) 0.1 K/mcL (0.0-0.3); Eosinophils # (Auto) 0.1 K/mcL (0.0-0.7); Eosinophils % (Auto) 2.2 % (0.0-7.0); Granulocytes % (Auto) 79.7 % (38.0-78.0); Lymphocytes # (Auto) 0.6 K/mcL (1.5-4.8); Lymphocytes % (Auto) 9.7 % (15.5-49.0); Mean Cell Volume 87.4 fL (80.0-100.0); Mean Corpuscular HGB Conc 33.2 g/dL (31.0-36.0); Mean Corpuscular Hemoglobin 29.1 pg (26.0-34.0); Monocytes # (Auto) 0.4 K/mcL (0.1-0.9); Monocytes % (Auto) 7.4 % (1.0-12.0); Platelet Count 186 K/mcL (140-440); RBC 3.76 M/mcL (4.00-5.20); Red Cell Distribution Width 16.6 % (11.5-14.5)
[2017-02-08 14:14] LABS: ALT/SGPT 7 U/l (0-40); Albumin 2.7 gm/dL (3.2-5.2); Albumin/Globulin Ratio 0.9 (1.0-2.3); Alkaline Phosphatase 37 U/L (39-117); Blood Urea Nitrogen 5 mg/dl (6-20)
--- NOTE | 2017-02-08 16:14 | Discharge Summary ---
Providers - Providers Patient information: Note initiated : 02/08/17 at 4:12 pm Service Date, if different from initiated Date: [] Patient: Shanika Robles 56 y/o F admitted on 01/27/17 for Diverticulitis. Chief Complaint: [] Date of admission: 01/27/17 Discharge date: 02/08/17 Attending physician: Cj Buckley Hospitalization Hospital course: 56-year-old female with history of severe diverticulitis dating back to mid November. She had had 3 treatments of p.o. antibiotics as an outpatient with some initial improvement but then with increasing size of the abscess. After her last course of antibiotics follow-up CT showed connection between the area of diverticulitis and the abscess cavity. The abscess cavity have increased in size. She was admitted and treated with 6 days of antibiotics but there was no improvement in her symptoms worsen. She was therefore taken to the OR and the segment of sigmoid colon was resected. The abscess was contained and there was no major contamination so the primary anastomosis was done. She has done very well and is 5 days postoperative. She is tolerating the diet and is having regular bowel movements and flatus. She is afebrile and her white blood count is normal. Patient is stable and will be discharged home on clindamycin for 7 days. She does not tolerate Cipro Flagyl or Augmentin well. Discharge diagnosis: Acute diverticulitis Secondary discharge diagnosis: Diverticular abscess Reason for admission: Nonresponse to outpatient treatment Procedures: Sigmoid colectomy with primary anastomosis Pertinent studies/significant findings: CT of abdomen and pelvis with contrast Complications: None Exam Temp Pulse Resp BP Pulse Ox 96.8 F L 58 L 18 137/82 95 02/08/17 16:03 02/08/17 16:03 02/08/17 16:03 02/08/17 16:03 02/08/17 16:03 - General physical appearance well developed, well nourished, no distress, chronically ill - Eyes PERRL, normal ocular movement - ENT normal pinna, normal nares, normal mucosa, no hearing loss, no congestion - Head Head exam IM: Present: atraumatic, normocephalic - Neck no masses, no bruits, trachea midline, no lymphadectomy, no venous distension - Cardiovascular Cardiovascular exam IM: Present: normal rate and rhythm, bradycardia, RRR, +S1, +S2. Absent: JVD - Respiratory normal expansion, normal respiratory effort, clear to percussion, clear to auscultation - Abdomen Abdomen: Present: soft, tender (Mild tenderness of her operative incision; POONAM drain with serous drainage), bowel sounds Hernia: Present: none - Genitourinary Present: normal external genitalia - Integumentary Present: no growths, no abnormal pigmentation, other (Chronic excoriation of extremities improved since admission) - Neurologic Present: normal coordination, normal sensation - Musculoskeletal Present: normal gait, normal posture - Psychiatric Present: oriented to time, oriented to person, oriented to place, speech is normal, memory intact Discharge Plan - Patient/Caregiver Discharge Instructions Activity: increase activity as tolerated Diet: Full Liquid (Advance to soft diet as tolerated) Additional Instructions: Empty POONAM drain once daily as needed Follow-up in the office for drain removal in 1 week Follow-up in the office for staple removal in 2 weeks Prescriptions: Clindamycin [Cleocin] 450 mg PO TID #30 capsule oxyCODONE/APAP [Percocet 10-325Mg] 1 tab PO Q4HP PRN #60 tablet PRN Reason: Pain - Follow up Plan Follow up with: jC Buckley MD [Physician] - 02/21/17 12:45 pm Disposition: Home, Self-Care Prognosis: Good Rehab Potential: Good I certify that the patient requires SNF services.: No Overall status at discharge: patient is not back to baseline Pending Studies Resuscitation Status Full Code Diet Full Liquid Diet Start TueFeb 08 Breakfast Heparin Sodium (Porcine) (Heparin Flush) 2 ml IV Q12 LISA Last Admin: 02/08/17 09:25 Dose: 2 ml Admin: 02/08/17 07:59 Dose: Not Given Admin: 02/08/17 06:38 Dose: 2 ml Admin: 02/07/17 21:25 Dose: 2 ml Admin: 02/07/17 08:22 Dose: 2 ml Admin: 02/06/17 20:12 Dose: 2 ml Admin: 02/06/17 07:13 Dose: 2 ml Admin: 02/05/17 20:31 Dose: 2 ml Admin: 02/05/17 08:57 Dose: 2 ml Admin: 02/04/17 22:10 Dose: 2 ml Admin: 02/04/17 20:56 Dose: Not Given Admin: 02/04/17 09:22 Dose: Not Given Admin: 02/03/17 20:28 Dose: Not Given Admin: 02/03/17 09:38 Dose: 2 ml Hydromorphone HCl (Dilaudid) 1 mg IV Q2HP PRN PRN Reason: Pain Last Admin: 02/08/17 11:24 Dose: 1 mg Admin: 02/08/17 06:48 Dose: 1 mg Admin: 02/08/17 03:57 Dose: 1 mg Admin: 02/08/17 02:13 Dose: 1 mg Admin: 02/07/17 22:57 Dose: 1 mg Admin: 02/07/17 19:59 Dose: 1 mg Admin: 02/07/17 14:04 Dose: 1 mg Admin: 02/07/17 11:00 Dose: 1 mg Admin: 02/07/17 06:47 Dose: 1 mg Admin: 02/07/17 02:55 Dose: 1 mg Admin: 02/06/17 22:11 Dose: 1 mg Admin: 02/06/17 20:21 Dose: 1 mg Admin: 02/06/17 17:58 Dose: 1 mg Admin: 02/06/17 12:28 Dose: 1 mg Admin: 02/06/17 09:38 Dose: 1 mg Admin: 02/06/17 03:25 Dose: 1 mg Admin: 02/05/17 20:33 Dose: 1 mg Admin: 02/05/17 15:30 Dose: 1 mg Admin: 02/05/17 11:15 Dose: 1 mg Admin: 02/05/17 05:14 Dose: 1 mg Admin: 02/05/17 00:13 Dose: 1 mg Admin: 02/04/17 20:55 Dose: 1 mg Admin: 02/04/17 16:41 Dose: 1 mg Admin: 02/04/17 11:24 Dose: 1 mg Admin: 02/04/17 07:01 Dose: 1 mg Metronidazole (Flagyl) 500 mg in 100 mls @ 100 mls/hr IV Q6H LISA Last Admin: 02/08/17 11:23 Dose: 100 mls/hr Infusion: 02/08/17 06:17 Dose: 100 mls/hr Admin: 02/08/17 05:17 Dose: 100 mls/hr Infusion: 02/07/17 23:53 Dose: 100 mls/hr Admin: 02/07/17 22:53 Dose: 100 mls/hr Infusion: 02/07/17 18:20 Dose: 100 mls/hr Admin: 02/07/17 17:20 Dose: 100 mls/hr Infusion: 02/07/17 12:00 Dose: 100 mls/hr Admin: 02/07/17 11:02 Dose: 100 mls/hr Infusion: 02/07/17 05:25 Dose: 100 mls/hr Admin: 02/07/17 04:24 Dose: 100 mls/hr Infusion: 02/07/17 00:52 Dose: 100 mls/hr Admin: 02/06/17 23:30 Dose: 100 mls/hr Infusion: 02/06/17 18:56 Dose: 100 mls/hr Admin: 02/06/17 17:56 Dose: 100 mls/hr Infusion: 02/06/17 11:45 Dose: 100 mls/hr Admin: 02/06/17 10:41 Dose: 100 mls/hr Infusion: 02/06/17 06:09 Dose: 100 mls/hr Admin: 02/06/17 05:09 Dose: 100 mls/hr Infusion: 02/05/17 23:57 Dose: 100 mls/hr Admin: 02/05/17 22:57 Dose: 100 mls/hr Infusion: 02/05/17 17:53 Dose: 100 mls/hr Admin: 02/05/17 16:44 Dose: 100 mls/hr Infusion: 02/05/17 12:00 Dose: 100 mls/hr Admin: 02/05/17 11:00 Dose: 100 mls/hr Infusion: 02/05/17 06:14 Dose: 100 mls/hr Admin: 02/05/17 05:14 Dose: 100 mls/hr Infusion: 02/05/17 00:25 Dose: 100 mls/hr Admin: 02/04/17 23:25 Dose: 100 mls/hr Infusion: 02/04/17 17:41 Dose: 100 mls/hr Admin: 02/04/17 16:41 Dose: 100 mls/hr Infusion: 02/04/17 12:22 Dose: 100 mls/hr Admin: 02/04/17 11:22 Dose: 100 mls/hr Infusion: 02/04/17 05:53 Dose: 100 mls/hr Admin: 02/04/17 04:53 Dose: 100 mls/hr Infusion: 02/04/17 00:07 Dose: 100 mls/hr Admin: 02/03/17 23:07 Dose: 100 mls/hr Infusion: 02/03/17 17:39 Dose: 100 mls/hr Admin: 02/03/17 16:39 Dose: 100 mls/hr Infusion: 02/03/17 11:40 Dose: 100 mls/hr Admin: 02/03/17 10:40 Dose: 100 mls/hr Infusion: 02/03/17 05:59 Dose: 100 mls/hr Admin: 02/03/17 04:59 Dose: 100 mls/hr Infusion: 02/02/17 23:50 Dose: 100 mls/hr Admin: 02/02/17 22:45 Dose: 100 mls/hr Infusion: 02/02/17 18:04 Dose: 100 mls/hr Admin: 02/02/17 17:04 Dose: 100 mls/hr Piperacillin Sod/Tazobactam (Sod 3.375 gm/ Dextrose) 50 mls @ 100 mls/hr IV Q6H LISA Last Admin: 02/08/17 13:15 Dose: 100 mls/hr Infusion: 02/08/17 07:07 Dose: 100 mls/hr Admin: 02/08/17 06:37 Dose: 100 mls/hr Infusion: 02/08/17 00:55 Dose: 100 mls/hr Admin: 02/08/17 00:25 Dose: 100 mls/hr Infusion: 02/07/17 19:10 Dose: 100 mls/hr Admin: 02/07/17 18:40 Dose: 100 mls/hr Infusion: 02/07/17 12:40 Dose: 100 mls/hr Admin: 02/07/17 12:09 Dose: 100 mls/hr Infusion: 02/07/17 06:05 Dose: 100 mls/hr Admin: 02/07/17 05:35 Dose: 100 mls/hr Infusion: 02/07/17 01:30 Dose: 100 mls/hr Admin: 02/07/17 00:51 Dose: 100 mls/hr Infusion: 02/06/17 17:57 Dose: 100 mls/hr Admin: 02/06/17 17:28 Dose: 100 mls/hr Infusion: 02/06/17 13:00 Dose: 100 mls/hr Admin: 02/06/17 12:30 Dose: 100 mls/hr Infusion: 02/06/17 06:47 Dose: 100 mls/hr Admin: 02/06/17 06:17 Dose: 100 mls/hr Infusion: 02/06/17 00:58 Dose: 100 mls/hr Admin: 02/06/17 00:28 Dose: 100 mls/hr Infusion: 02/05/17 18:23 Dose: 100 mls/hr Admin: 02/05/17 17:53 Dose: 100 mls/hr Infusion: 02/05/17 12:31 Dose: 100 mls/hr Admin: 02/05/17 12:01 Dose: 100 mls/hr Infusion: 02/05/17 06:36 Dose: 100 mls/hr Admin: 02/05/17 06:06 Dose: 100 mls/hr Infusion: 02/05/17 00:43 Dose: 100 mls/hr Admin: 02/05/17 00:13 Dose: 100 mls/hr Infusion: 02/04/17 18:14 Dose: 100 mls/hr Admin: 02/04/17 17:44 Dose: 100 mls/hr Infusion: 02/04/17 13:02 Dose: 100 mls/hr Admin: 02/04/17 12:32 Dose: 100 mls/hr Infusion: 02/04/17 07:01 Dose: 100 mls/hr Admin: 02/04/17 06:31 Dose: 100 mls/hr Infusion: 02/04/17 00:33 Dose: 100 mls/hr Admin: 02/04/17 00:03 Dose: 100 mls/hr Infusion: 02/03/17 19:57 Dose: 100 mls/hr Admin: 02/03/17 19:27 Dose: 100 mls/hr Infusion: 02/03/17 12:55 Dose: 100 mls/hr Admin: 02/03/17 12:25 Dose: 100 mls/hr Infusion: 02/03/17 06:16 Dose: 100 mls/hr Admin: 02/03/17 05:46 Dose: 100 mls/hr Infusion: 02/03/17 00:30 Dose: 100 mls/hr Admin: 02/03/17 00:00 Dose: 100 mls/hr Infusion: 02/02/17 19:30 Dose: 100 mls/hr Admin: 02/02/17 18:27 Dose: 100 mls/hr Acetaminophen (Ofirmev) 1,000 mg in 100 mls @ 200 mls/hr IV Q6HP PRN PRN Reason: Pain Last Admin: 02/03/17 21:36 Dose: 200 mls/hr Infusion: 02/03/17 15:03 Dose: 200 mls/hr Admin: 02/03/17 14:33 Dose: 200 mls/hr Infusion: 02/03/17 09:20 Dose: 200 mls/hr Admin: 02/03/17 08:50 Dose: 200 mls/hr Infusion: 02/03/17 02:15 Dose: 200 mls/hr Admin: 02/03/17 01:44 Dose: 200 mls/hr Infusion: 02/02/17 20:30 Dose: 200 mls/hr Admin: 02/02/17 20:00 Dose: 200 mls/hr Latanoprost (Xalatan Ophth Drops) 1 gtt OU HS LISA Last Admin: 02/07/17 21:20 Dose: Not Given Admin: 02/06/17 20:13 Dose: Admin: 02/05/17 20:32 Dose: Admin: 02/04/17 20:57 Dose: Admin: 02/03/17 20:29 Dose: Admin: 02/02/17 23:17 Dose: Lorazepam (Ativan) 1 mg IV Q6HP PRN PRN Reason: ANXIETY/SEDATION Last Admin: 02/05/17 22:58 Dose: 1 mg Admin: 02/04/17 14:12 Dose: 1 mg Metoclopramide HCl (Reglan) 10 mg IV Q6 LISA Last Admin: 02/08/17 11:24 Dose: 10 mg Admin: 02/08/17 06:38 Dose: 10 mg Admin: 02/08/17 00:24 Dose: 10 mg Admin: 02/07/17 17:20 Dose: 10 mg Admin: 02/07/17 12:09 Dose: 10 mg Admin: 02/07/17 05:37 Dose: 10 mg Admin: 02/07/17 00:15 Dose: 10 mg Admin: 02/06/17 17:28 Dose: 10 mg Admin: 02/06/17 12:28 Dose: 10 mg Admin: 02/06/17 05:57 Dose: 10 mg Admin: 02/06/17 00:28 Dose: 10 mg Admin: 02/05/17 17:53 Dose: 10 mg Admin: 02/05/17 12:01 Dose: 10 mg Admin: 02/05/17 06:06 Dose: 10 mg Admin: 02/05/17 00:13 Dose: 10 mg Admin: 02/04/17 17:37 Dose: 10 mg Admin: 02/04/17 12:32 Dose: 10 mg Admin: 02/04/17 07:01 Dose: 10 mg Admin: 02/04/17 00:41 Dose: 10 mg Admin: 02/03/17 17:49 Dose: 10 mg Admin: 02/03/17 11:32 Dose: 10 mg Admin: 02/03/17 05:46 Dose: 10 mg Admin: 02/03/17 00:00 Dose: 10 mg Admin: 02/02/17 17:24 Dose: 10 mg Ondansetron HCl (Zofran) 4 mg IV Q6HP PRN PRN Reason: Nausea And Vomiting Last Admin: 02/08/17 09:48 Dose: 4 mg Admin: 02/07/17 11:00 Dose: 4 mg Admin: 02/06/17 12:36 Dose: 4 mg Admin: 02/05/17 11:09 Dose: 4 mg Ondansetron HCl (Zofran) 4 mg IV Q4HP PRN PRN Reason: Nausea Last Admin: 02/07/17 19:57 Dose: 4 mg Admin: 02/04/17 02:33 Dose: 4 mg Pantoprazole Sodium (Protonix) 40 mg IV BIDAC LISA Last Admin: 02/08/17 06:38 Dose: 40 mg Admin: 02/07/17 17:21 Dose: 40 mg Admin: 02/07/17 07:27 Dose: 40 mg Admin: 02/06/17 17:28 Dose: 40 mg Admin: 02/06/17 07:13 Dose: 40 mg Admin: 02/05/17 16:41 Dose: 40 mg Admin: 02/05/17 07:10 Dose: 40 mg Admin: 02/04/17 17:37 Dose: 40 mg Admin: 02/04/17 07:01 Dose: 40 mg Admin: 02/03/17 17:49 Dose: 40 mg Admin: 02/03/17 08:10 Dose: 40 mg Admin: 02/02/17 17:08 Dose: 40 mg Sertraline HCl (Zoloft) 100 mg PO DAILY [facility] Last Admin: 02/08/17 09:18 Dose: 100 mg Admin: 02/07/17 08:22 Dose: 100 mg Admin: 02/06/17 10:40 Dose: 100 mg Admin: 02/05/17 08:57 Dose: 100 mg Trazodone HCl (Desyrel) 150 mg PO HS [facility] Last Admin: 02/07/17 21:25 Dose: 150 mg Admin: 02/06/17 20:12 Dose: 150 mg Admin: 02/05/17 20:31 Dose: 150 mg Admin: 02/04/17 20:56 Dose: 150 mg Shift Summary 02/08/17 04:00 Shift Summary by KyleJuliana Slept fairly well tonight. Has been taking sips of water & Power Adwoa. Isabel is too sweet, and the broth she didn't like. Had one episode of nausea w/25-50cc emesis early in the shift. Has had pain meds every 2-3 hours. UP ad jonathon in her room. Has had several small, loose BM; passing flatus. Hoping to have her diet advanced so she can go home today. Dr Buckley said she will not need her PICC at d /c, but there are no orders to d/c it yet. Initialized on 02/08/17 04:00 - END OF NOTE
--- NOTE | 2017-02-15 09:20 | Operative Note ---
DATE OF OPERATION: 02/02/2017 PREOPERATIVE DIAGNOSIS: Diverticulitis with abscess. POSTOPERATIVE DIAGNOSIS: Sigmoid diverticulitis with abscess. PROCEDURE: Segmental left colectomy. SURGEON: Cj Buckley MD. AUTOMATIC [employer]Y STARCH OPERATOR: Krishna Donahue MD. DESCRIPTION: Under general endotracheal anesthesia, the patient's abdomen was prepped and draped in the sterile field. Midline incision was made. Upon entering the abdomen, there was a large inflammatory mass involving the midsigmoid colon with extension into the retroperitoneum. The incision was extended more caudad. A self-retaining retractor was placed. The abdomen was packed off. The sigmoid colon was dissected along its lateral attachments until it was free. Part of it was attached to the bladder, and it was dissected such that the bladder was not injured. Once this was done it was freely mobile. An area about 3 cm proximal to the mass and 3 cm distal to the mass was chosen. A mesenteric window was placed, and the colon was divided in these areas using a Contour stapler. The mesocolon was then serially dissected, and the retroperitoneum abscess cavity was dissected and as much as possible was removed with the mass. Copious irrigation was carried out. The mass was passed off. The vessels of the mesentery were tied with interrupted 2-0 silk. Since there was no free contamination, an end-to-side anastomosis was performed using 2-0 Monocryl and 2-0 Prolene. The end of the proximal sigmoid was stapled using an LDS stapler. The mesenteric defect was closed with interrupted 2-0 Monocryl. A POONAM drain was placed in the left lower quadrant and in the deep pelvis, and they were brought out in the right lower quadrant. Copious irrigation was carried out once more. Sponge, needle, instrument and blade counts were verified as correct, and the abdomen was closed. Peritoneum and fascia was closed with running locking #1 Prolene. Subcutaneous tissue was irrigated with Bacitracin solution and then covered with Bacitracin powder. It was closed with 2-0 Monocryl. Skin was closed with winston. Tegaderm dressing was placed. Patient tolerated the procedure well. She was awakened from anesthesia, transferred to a bed and taken to the postanesthetic care unit in stable, satisfactory condition. LCS:bell Job ID: [id number] Doc ID: [id number] Cj Buckley M.D.
== END 2017-02-08 19:09 | disposition home or self-care (01) | DRG 330 ==
LOC: MEDSUR 15:20
PROVIDERS: ADMIT Family Medicine Adult Medicine; ATTEND Family Medicine Adult Medicine